=== PATIENT | male | born 1940 | race Caucasian/White ===

== ENCOUNTER 2017-06-25 16:50 | Emergency (ER) | payer MEDICARE, MEDICAID ==
--- NOTE | 2017-06-25 17:34 | EDM.PDOC ---
ED HPI GENERAL MEDICAL PROBLEM - General Chief Complaint: General Stated Complaint: LAB Time Seen by Provider: 06/25/17 17:32 Source of Information: Reports: Patient History Limitations: Reports: No Limitations - History of Present Illness INITIAL COMMENTS - FREE TEXT/NARRATIVE: History of present illness: [76-year-old male but in by brother who is concerned about his level of functioning. Patient is low functioning but can be somewhat independent. Now other indicates that he feels that he is not functioning to his normal capacity and desires to have his labs evaluated as his guardian.] Review of systems: As per history of present illness and below otherwise all systems reviewed and negative. Past medical history: As per history of present illness and as reviewed below otherwise noncontributory. Surgical history: As per history of present illness and as reviewed below otherwise noncontributory. Social history: No reported history of drug or alcohol abuse. Family history: As per history of present illness and as reviewed below otherwise noncontributory. Physical exam: HEENT: Atraumatic, normocephalic, pupils reactive, negative for conjunctival pallor or scleral icterus, mucous membranes moist, throat clear, neck supple, nontender, trachea midline. Lungs: Clear to auscultation, breath sounds equal bilaterally, chest nontender. Heart: S1S2, regular, negative for clicks, rubs, or JVD. Abdomen: Soft, nondistended, nontender. Negative for masses or hepatosplenomegaly. Negative for costovertebral tenderness. Pelvis: Stable nontender. Genitourinary: Deferred. Rectal: Deferred. Extremities: Atraumatic, negative for cords or calf pain. Neurovascular unremarkable. Neuro: Awake, alert, oriented. Cranial nerves II through XII unremarkable. Cerebellum unremarkable. Motor and sensory unremarkable throughout. Exam nonfocal. Brother indicates that he has just been worried about historical labs drawn at the [facility] and would like that repeated Diagnostics: [CBC, CMP, amylase, lipase, UA,] Therapeutics: [] Impression: [Worried well] Plan: [Follow-up with PCP] Definitive disposition and diagnosis as appropriate pending reevaluation and review of above. - Related Data Allergies Allergy/AdvReac Type Severity Reaction Status Date / Time No Known Allergies Allergy Verified 06/25/17 17:17 Home Meds: Home Meds Omeprazole Magnesium [Prilosec Otc] 20 mg PO BID 06/25/17 [History] Past Medical History HEENT History: Reports: None Cardiovascular History: Reports: None Respiratory History: Reports: None Gastrointestinal History: Reports: Diverticulosis Genitourinary History: Reports: None Musculoskeletal History: Reports: None Neurological History: Reports: Cerebral Palsy Psychiatric History: Reports: None Endocrine/Metabolic History: Reports: None Hematologic History: Reports: None Immunologic History: Reports: None Oncologic (Cancer) History: Reports: None Dermatologic History: Reports: None - Infectious Disease History Infectious Disease History: Reports: Chicken Pox, Measles, Mumps, Shingles - Past Surgical History Head Surgeries/Procedures: Reports: None HEENT Surgical History: Reports: None Cardiovascular Surgical History: Reports: None Respiratory Surgical History: Reports: None GI Surgical History: Reports: Colon, Hernia, Abdominal Male Surgical History: Reports: None Endocrine Surgical History: Reports: None Neurological Surgical History: Reports: None Musculoskeletal Surgical History: Reports: None Dermatological Surgical History: Reports: None Social & Family History - Family History Family Medical History: Noncontributory - Tobacco Use Smoking Status *Q: Current Every Day Smoker Years of Tobacco use: 56 Packs/Tins Daily: 0.2 - Caffeine Use Caffeine Use: Reports: Coffee - Recreational Drug Use Recreational Drug Use: No ED ROS GENERAL - Review of Systems Review Of Systems: See Below (History of present illness) ED EXAM, GENERAL - Physical Exam Exam: See Below (See history of present illness) Course - Vital Signs Last Recorded V/S: Last Vital Signs Temp 36.5 C 06/25/17 17:19 Pulse 115 H 06/25/17 17:19 Resp 18 06/25/17 17:19 BP 128/71 06/25/17 17:19 Pulse Ox 91 L 06/25/17 17:19 - Orders/Labs/Meds Orders: Active Orders 24 hr Category Date Time Status AMYLASE [CHEM] Stat Lab 06/25/17 17:47 Received COMPREHENSIVE METABOLIC PN,CMP [CHEM] Stat Lab 06/25/17 17:47 Received FREE T3 [REF] Stat Lab 06/25/17 17:47 Received LIPASE [CHEM] Stat Lab 06/25/17 17:47 Received MAGNESIUM [CHEM] Stat Lab 06/25/17 17:47 Received PSA SCREEN [CHEM] Stat Lab 06/25/17 17:47 Received TSH [CHEM] Stat Lab 06/25/17 17:47 Received UA W/MICROSCOPIC [URIN] Stat Lab 06/25/17 17:36 Uncollected Labs: Laboratory Tests 06/25/17 Range/Units 17:47 WBC 11.61 H (4.0-11.0) K/uL RBC 4.00 L (4.50-5.90) M/uL Hgb 10.9 L (13.0-17.0) g/dL Hct 33.3 L (38.0-50.0) % MCV 83.3 (80.0-98.0) fL MCH 27.3 (27.0-32.0) pg MCHC 32.7 (31.0-37.0) g/dL RDW Std Deviation 54.3 (28.0-62.0) fl RDW Coeff of Pierre 18 H (11.0-15.0) % Plt Count 503 H (150-400) K/uL MPV 8.80 (7.40-12.00) fL Neut % (Auto) 71.5 (48.0-80.0) % Lymph % (Auto) 15.8 L (16.0-40.0) % Walker % (Auto) 10.3 (0.0-15.0) % Eos % (Auto) 2.1 (0.0-7.0) % Baso % (Auto) 0.3 (0.0-1.5) % Neut # (Auto) 8.3 H (1.4-5.7) K/uL Lymph # (Auto) 1.8 (0.6-2.4) K/uL Walker # (Auto) 1.2 H (0.0-0.8) K/uL Eos # (Auto) 0.2 (0.0-0.7) K/uL Baso # (Auto) 0.0 (0.0-0.1) K/uL Nucleated RBC % 0.0 /100WBC Nucleated RBCs # 0 K/uL Departure - Departure Time of Disposition: 18:29 Disposition: Home, Self-Care 01 Condition: Good Clinical Impression: Physically well but worried - Discharge Information Referrals: PCP,None [Primary Care Provider] - Forms: ED Department Discharge Additional Instructions: The following information is given to patients seen in the emergency department who are being discharged to home. This information is to outline your options for follow-up care. We provide all patients seen in our emergency department with a follow-up referral. The need for follow-up, as well as the timing and circumstances, are variable depending upon the specifics of your emergency department visit. If you don't have a primary care physician on staff, we will provide you with a referral. We always advise you to contact your personal physician following an emergency department visit to inform them of the circumstance of the visit and for follow-up with them and/or the need for any referrals to a consulting specialist. The emergency department will also refer you to a specialist when appropriate. This referral assures that you have the opportunity for follow-up care with a specialist. All of these measure are taken in an effort to provide you with optimal care, which includes your follow-up. Under all circumstances we always encourage you to contact your private physician who remains a resource for coordinating your care. When calling for follow-up care, please make the office aware that this follow-up is from your recent emergency room visit. If for any reason you are refused follow-up, please contact the [facility] Emergency Department at and asked to speak to the emergency department charge nurse. Your lab results had no significant concerns at this time you can access them through medical records in approximately 5-7 business days Return to ED for any concerns as discussed - My Orders Last 24 Hours: My Active Orders 06/25/17 17:36 UA W/MICROSCOPIC [URIN] Stat 06/25/17 17:47 AMYLASE [CHEM] Stat COMPREHENSIVE METABOLIC PN,CMP [CHEM] Stat FREE T3 [REF] Stat LIPASE [CHEM] Stat MAGNESIUM [CHEM] Stat PSA SCREEN [CHEM] Stat TSH [CHEM] Stat - Assessment/Plan Last 24 Hours: My Active Orders 06/25/17 17:36 UA W/MICROSCOPIC [URIN] Stat 06/25/17 17:47 AMYLASE [CHEM] Stat COMPREHENSIVE METABOLIC PN,CMP [CHEM] Stat FREE T3 [REF] Stat LIPASE [CHEM] Stat MAGNESIUM [CHEM] Stat PSA SCREEN [CHEM] Stat TSH [CHEM] Stat
[2017-06-25 18:17] LABS: CHLORIDE,CL 104 mmol/L (98-110); SODIUM,NA 136 mmol/L (136-146)
== END 2017-06-25 18:41 | disposition home or self-care (01) ==
LOC: MW.ED 16:50
DX: Z71.1 Person with feared health complaint in whom no diagnosis is made (principal); F17.210 Nicotine dependence, cigarettes, uncomplicated
CPT/HCPCS: 80053; 82150; 83690; 83735; 84443; 84481; 85025; 99283; G0103; 36415; 99281

== ENCOUNTER 2018-01-01 04:03 | Inpatient (IN) | payer MEDICARE, MEDICAID ==
--- NOTE | 2018-01-01 04:27 | EDM.PDOC ---
ED HPI GENERAL MEDICAL PROBLEM - General Chief Complaint: Abdominal Pain Stated Complaint: POSSIBLY ANEMIC, LISTLESS, TIRED Time Seen by Provider: 01/01/18 04:08 - History of Present Illness INITIAL COMMENTS - FREE TEXT/NARRATIVE: HISTORY AND PHYSICAL: History of present illness: The patient is a 77-year-old male who has a history of cerebral palsy and is low functioning but lives with his brother and has limited use of his right upper extremity and no use of his lower extremities or left upper extremity and presents with brother with concerns about decreased energy and increased listlessness and a history of having some nausea and vomiting 4-5 days ago. The patient has not had diarrhea and is actually more on the constipated side and has not had fever chills chest pain or abdominal pain. He is making normal urine output and drinks a lot of water according to the brother. 4-5 days ago he had nausea and vomiting and has had some persistent heartburn-like symptoms for the last few days and normally takes Prilosec and has been adding some Pepto -Bismol. He has not been eating as much as usual but he's been tolerating by mouth. The patient has no complaints and according to the brother he has not had any recent falls loss of consciousness dizziness or lightheadedness. The brother says that in the past he has had anemia requiring blood transfusion and that was several years ago but the patient presented here to our emergency department in May 2017 with similar complaints to today, vague decrease activity and concerned about anemia. His lab values at that time are all within normal limits with a hemoglobin of 10.9. According to the brother he does not have a local provider in the clinic as he is "really healthy for his age and his pre-existing problems". The brother is very specific about what he wants and does not want. He tells that he normally has a cough with some phlegm which is not new or different and he does not feel like the cough is changed very much. The patient again denies to me that he is short of breath or having any chest pain. Please see below for more information Review of systems: As per history of present illness and below otherwise all systems reviewed and negative. Past medical history: As per history of present illness and as reviewed below otherwise noncontributory. Surgical history: As per history of present illness and as reviewed below otherwise noncontributory. Social history: No reported history of drug or alcohol abuse. Family history: As per history of present illness and as reviewed below otherwise noncontributory. Physical exam: General: Well-developed thin man who has contractures and profound stiffness in his lower extremities and left upper extremity. He answers simple questions and is nontoxic appearing with vital signs that I have noted. HEENT: Atraumatic, normocephalic, pupils reactive, negative for conjunctival pallor or scleral icterus, mucous membranes moist, throat clear, neck supple, nontender, trachea midline. Lungs: Clear to auscultation with some coarse breath sounds at the bases but no stridor or wheezing or work or breathing, breath sounds equal bilaterally, chest nontender. Heart: S1S2, regular, negative for clicks, rubs, or JVD. Abdomen: Soft, nondistended, nontender. Bowel sounds are hypoactive and there is some tympany in the upper abdomen on percussion but no rebound or guarding Negative for masses or hepatosplenomegaly. Pelvis: Stable nontender. Genitourinary: Deferred. Rectal: Buttocks skin is erythematous and mildly excoriated throughout but there is a lotion on it. There is no large evidence of breakdown. Brown stool is present at the anus and is Hemoccult positive Extremities: Atraumatic and there is increased tone and contractures in the lower extremities and less in the upper extremities but more in the left upper. This is not new or different for the brother. The legs are, negative for cords or calf pain. Neurovascular unremarkable. Neuro: Awake, alert, and at his mental baseline per the brother. The patient has no movement of his lower extremities and limited in the upper extremities which is at his baseline. Patient answers simple questions Exam nonfocal. Diagnostics: CBC CMP TSH magnesium UA, urine culture lactic acid H. pylori amylase lipase chest and KUB x-rays, blood cultures 2 EKG type and screen Therapeutics: IV fluids Protonix IV push and drip, Levaquin, blood transfusion The brother tells me that several years ago he had a low hemoglobin and had to receive IV units of blood and he does have a history of a ulcer with bleeding that has not been active recently. He takes antacids on a regular basis but brother says he has had more heartburn since the vomiting several days ago. When he vomited several days ago it was not black or bloody or coffee grounds. He has not had any black or bloody stools. His abdominal x-rays do show a copious amount of colonic stool as well as nonobstructive gas loops in the upper abdomen and a large hiatal hernia. 0550: Case was discussed with Dr. Aaron Montalvo who is the hospitalist and he accepts the patient for transfer and is aware of events here in the ED. Impression: Anemia with heme positive stools/upper GI bleed , history of ulcer disease and hiatal hernia, UTI with elevated lactate Definitive disposition and diagnosis as appropriate pending reevaluation and review of above. Abdomen Pain Score (Numeric/FACES): 3 - Related Data Allergies Allergy/AdvReac Type Severity Reaction Status Date / Time No Known Allergies Allergy Verified 01/01/18 04:13 Home Meds: Home Meds Omeprazole Magnesium [Prilosec Otc] 20 mg PO BID 06/25/17 [History] Past Medical History HEENT History: Reports: None Cardiovascular History: Reports: None Respiratory History: Reports: None Gastrointestinal History: Reports: Diverticulosis Genitourinary History: Reports: None Musculoskeletal History: Reports: None Neurological History: Reports: Cerebral Palsy Psychiatric History: Reports: None Endocrine/Metabolic History: Reports: None Hematologic History: Reports: None Immunologic History: Reports: None Oncologic (Cancer) History: Reports: None Dermatologic History: Reports: None - Infectious Disease History Infectious Disease History: Reports: None - Past Surgical History Head Surgeries/Procedures: Reports: None HEENT Surgical History: Reports: None Cardiovascular Surgical History: Reports: None Respiratory Surgical History: Reports: None GI Surgical History: Reports: Colon, Hernia, Abdominal Male Surgical History: Reports: None Endocrine Surgical History: Reports: None Neurological Surgical History: Reports: None Musculoskeletal Surgical History: Reports: None Dermatological Surgical History: Reports: None Social & Family History - Family History Family Medical History: Noncontributory - Tobacco Use Smoking Status *Q: Never Smoker - Caffeine Use Caffeine Use: Reports: Coffee - Recreational Drug Use Recreational Drug Use: No ED ROS GENERAL - Review of Systems Review Of Systems: ROS reveals no pertinent complaints other than HPI. ED EXAM, GENERAL - Physical Exam Exam: See Below (See dictation) Course - Vital Signs Last Recorded V/S: Last Vital Signs Temp 37.1 C 01/01/18 04:14 Pulse 105 H 01/01/18 05:28 Resp 17 01/01/18 05:28 BP 117/69 01/01/18 05:28 Pulse Ox 99 01/01/18 05:28 - Orders/Labs/Meds Orders: Active Orders 24 hr Category Date Time Status Patient Status [ADT] Stat ADT 01/01/18 05:52 Ordered EKG Documentation Completion [RC] STAT Care 01/01/18 05:07 Active Abdomen 1V Flat [CR] Stat Exams 01/01/18 04:27 Taken Chest 1V Frontal [CR] Stat Exams 01/01/18 04:25 Taken CULTURE BLOOD [BC] Stat Lab 01/01/18 05:10 Received CULTURE BLOOD [BC] Stat Lab 01/01/18 05:20 Received CULTURE URINE [RM] Stat Lab 01/01/18 04:33 Received RED BLOOD CELLS LP [BBK] Stat Lab 01/01/18 05:10 Received TYPE AND SCREEN [BBK] Stat Lab 01/01/18 05:10 Received UA W/MICROSCOPIC [URIN] Stat Lab 01/01/18 04:33 Ordered Levofloxacin/Dextrose 5%-Water [Levaquin in D5W 500 MG/ Med 01/01/18 05:07 Active 100 ML] 500 mg Premix Bag 1 bag IV ONETIME Pantoprazole [ProTONIX IV] 80 mg Med 01/01/18 05:15 Active Sodium Chloride 0.9% [Normal Saline] 100 ml IV .Continuous Sodium Chloride 0.9% [Normal Saline] 1,000 ml Med 01/01/18 05:00 Active IV ASDIRECTED Sodium Chloride 0.9% [Saline Flush] Med 01/01/18 04:56 Active 10 ml FLUSH ASDIRECTED PRN Sodium Chloride 0.9% [Saline Flush] Med 01/01/18 04:56 Active 2.5 ml FLUSH ASDIRECTED PRN Blood Culture x2 Reflex Set [OM.PC] Stat Oth 01/01/18 04:56 Ordered Saline Lock Insert [OM.PC] Stat Oth 01/01/18 04:56 Ordered Transfuse RBC [Transfuse Red Blood Cells] [COMM] Stat Oth 01/01/18 04:58 Ordered Medication Orders Sodium Chloride (Normal Saline) 1,000 mls @ 83 mls/hr IV ASDIRECTED JENNIFER Last Admin: 01/01/18 05:13 Dose: 83 mls/hr Pantoprazole Sodium 80 mg/ (Sodium Chloride) 100 mls @ 10 mls/hr IV .Continuous JENNIFER Last Admin: 01/01/18 05:35 Dose: 10 mls/hr Levofloxacin/Dextrose 500 mg/ (Premix) 100 mls @ 100 mls/hr IV ONETIME ONE Stop: 01/01/18 06:06 Last Admin: 01/01/18 05:24 Dose: 100 mls/hr Sodium Chloride (Saline Flush) 10 ml FLUSH ASDIRECTED PRN PRN Reason: Keep Vein Open Last Admin: 01/01/18 05:13 Dose: 10 ml Sodium Chloride (Saline Flush) 2.5 ml FLUSH ASDIRECTED PRN PRN Reason: Keep Vein Open Last Admin: 01/01/18 05:13 Dose: 2.5 ml Labs: Laboratory Tests 01/01/18 01/01/18 01/01/18 Range/Units 04:33 04:40 04:40 WBC 12.68 H (4.0-11.0) K/uL RBC 3.49 L (4.50-5.90) M/uL Hgb 5.9 L (13.0-17.0) g/dL Hct 22.1 L (38.0-50.0) % MCV 63.3 L (80.0-98.0) fL MCH 16.9 L (27.0-32.0) pg MCHC 26.7 L (31.0-37.0) g/dL RDW Std Deviation 47.8 (28.0-62.0) fl RDW Coeff of Pierre 21 H (11.0-15.0) % Plt Count 362 (150-400) K/uL MPV 8.20 (7.40-12.00) fL Neut % (Auto) 83.4 H (48.0-80.0) % Lymph % (Auto) 8.8 L (16.0-40.0) % [place] % (Auto) 7.4 (0.0-15.0) % Eos % (Auto) 0.2 (0.0-7.0) % Baso % (Auto) 0.2 (0.0-1.5) % Neut # (Auto) 10.6 H (1.4-5.7) K/uL Lymph # (Auto) 1.1 (0.6-2.4) K/uL [place] # (Auto) 0.9 H (0.0-0.8) K/uL Eos # (Auto) 0.0 (0.0-0.7) K/uL Baso # (Auto) 0.0 (0.0-0.1) K/uL Nucleated RBC % 0.3 /100WBC Nucleated RBCs # 0 K/uL Lactate (0.20-2.00) mmol/L Sodium 136 (136-148) mmol/L Potassium 5.0 (3.5-5.1) mmol/L Chloride 102 (98-107) mmol/L Carbon Dioxide 22.0 (21.0-32.0) mmol/L BUN 24 H (7.0-18.0) mg/dL Creatinine 1.2 (0.8-1.3) mg/dL Est Cr Clr Drug Dosing TNP Estimated GFR (MDRD) 58.6 ml/min Glucose 124 H (74-106) mg/dL Calcium 10.1 (8.5-10.1) mg/dL Magnesium 1.8 (1.5-2.0) mg/dL Total Bilirubin 0.2 (0.2-1.0) mg/dL AST 16 (15-37) IU/L ALT 21 (14-63) IU/L Alkaline Phosphatase 62 (46-116) U/L Total Protein 8.3 H (6.4-8.2) g/dL Albumin 3.9 (3.4-5.0) g/dL Globulin 4.4 H (2.0-3.5) g/dL Albumin/Globulin Ratio 0.9 L (1.3-2.8) Amylase 61 (25-115) U/L Lipase 131 (73-393) U/L TSH 3rd Generation 4.30 H (0.36-3.74) uIU/mL Urine Color YELLOW Urine Appearance CLOUDY Urine pH 5.5 (5.0-8.0) Ur Specific [place] 1.025 (1.001-1.035) Urine Protein TRACE (NEGATIVE) mg/dL Urine Glucose (UA) NEGATIVE (NEGATIVE) mg/dL Urine Ketones NEGATIVE (NEGATIVE) mg/dL Urine Occult Blood TRACE-INTACT (NEGATIVE) Urine Nitrite POSITIVE H (NEGATIVE) Urine Bilirubin NEGATIVE (NEGATIVE) Urine Urobilinogen 0.2 (<2.0) EU/dL Ur Leukocyte Esterase LARGE (NEGATIVE) Urine RBC 0-2 (0-2/HPF) Urine WBC 19-26 (0-5/HPF) Ur Epithelial Cells FEW (NONE-FEW) Urine Bacteria 2+ H (NEGATIVE) Urine Mucus LIGHT (NONE-MOD) H. pylori IgG Antibody (NEG) 01/01/18 01/01/18 Range/Units 04:40 04:40 WBC (4.0-11.0) K/uL RBC (4.50-5.90) M/uL Hgb (13.0-17.0) g/dL Hct (38.0-50.0) % MCV (80.0-98.0) fL MCH (27.0-32.0) pg MCHC (31.0-37.0) g/dL RDW Std Deviation (28.0-62.0) fl RDW Coeff of Pierre (11.0-15.0) % Plt Count (150-400) K/uL MPV (7.40-12.00) fL Neut % (Auto) (48.0-80.0) % Lymph % (Auto) (16.0-40.0) % [place] % (Auto) (0.0-15.0) % Eos % (Auto) (0.0-7.0) % Baso % (Auto) (0.0-1.5) % Neut # (Auto) (1.4-5.7) K/uL Lymph # (Auto) (0.6-2.4) K/uL [place] # (Auto) (0.0-0.8) K/uL Eos # (Auto) (0.0-0.7) K/uL Baso # (Auto) (0.0-0.1) K/uL Nucleated RBC % /100WBC Nucleated RBCs # K/uL Lactate 3.7 H (0.20-2.00) mmol/L Sodium (136-148) mmol/L Potassium (3.5-5.1) mmol/L Chloride (98-107) mmol/L Carbon Dioxide (21.0-32.0) mmol/L BUN (7.0-18.0) mg/dL Creatinine (0.8-1.3) mg/dL Est Cr Clr Drug Dosing Estimated GFR (MDRD) ml/min Glucose (74-106) mg/dL Calcium (8.5-10.1) mg/dL Magnesium (1.5-2.0) mg/dL Total Bilirubin (0.2-1.0) mg/dL AST (15-37) IU/L ALT (14-63) IU/L Alkaline Phosphatase (46-116) U/L Total Protein (6.4-8.2) g/dL Albumin (3.4-5.0) g/dL Globulin (2.0-3.5) g/dL Albumin/Globulin Ratio (1.3-2.8) Amylase (25-115) U/L Lipase (73-393) U/L TSH 3rd Generation (0.36-3.74) uIU/mL Urine Color Urine Appearance Urine pH (5.0-8.0) Ur Specific [place] (1.001-1.035) Urine Protein (NEGATIVE) mg/dL Urine Glucose (UA) (NEGATIVE) mg/dL Urine Ketones (NEGATIVE) mg/dL Urine Occult Blood (NEGATIVE) Urine Nitrite (NEGATIVE) Urine Bilirubin (NEGATIVE) Urine Urobilinogen (<2.0) EU/dL Ur Leukocyte Esterase (NEGATIVE) Urine RBC (0-2/HPF) Urine WBC (0-5/HPF) Ur Epithelial Cells (NONE-FEW) Urine Bacteria (NEGATIVE) Urine Mucus (NONE-MOD) H. pylori IgG Antibody NEGATIVE (NEG) Meds: Medications Generic Name Dose Route Start Last Admin Trade Name Freq PRN Reason Stop Dose Admin Sodium Chloride 1,000 mls @ 83 mls/hr 01/01/18 05:00 01/01/18 05:13 Normal Saline IV 83 mls/hr ASDIRECTED JENNIFER Administration Pantoprazole Sodium 80 mg/ 100 mls @ 10 mls/hr 01/01/18 05:15 01/01/18 05:35 Sodium Chloride IV 10 mls/hr .Continuous JENNIFER Administration Levofloxacin/Dextrose 500 mg/ 100 mls @ 100 mls/hr 01/01/18 05:07 01/01/18 05 :24 Premix IV 01/01/18 06:06 100 mls/hr ONETIME ONE Administration Sodium Chloride 10 ml 01/01/18 04:56 05/09/18 05:13 Saline Flush FLUSH 10 ml ASDIRECTED PRN Administration Keep Vein Open Sodium Chloride 2.5 ml 01/01/18 04:56 01/01/18 05:13 Saline Flush FLUSH 2.5 ml ASDIRECTED PRN Administration Keep Vein Open Discontinued Medications Generic Name Dose Route Start Last Admin Trade Name Freq PRN Reason Stop Dose Admin Pantoprazole Sodium 80 mg 01/01/18 04:58 01/01/18 05:17 Protonix Iv IVPUSH 01/01/18 04:59 80 mg .BOLUS ONE Administration Departure - Departure Time of Disposition: 05:54 Disposition: Admitted As Inpatient 65 Condition: Good Clinical Impression: Upper GI bleeding Anemia Qualifiers: Anemia type: other cause Other causes of anemia: other cause, not classified Qualified Code(s): D64.89 - Other specified anemias UTI (urinary tract infection) Qualifiers: Urinary tract infection type: site unspecified Hematuria presence: without hematuria Qualified Code(s): N39.0 - Urinary tract infection, site not specified - Discharge Information Referrals: PCP,None [Primary Care Provider] - Forms: ED Department Discharge - My Orders Last 24 Hours: My Active Orders 01/01/18 04:25 Chest 1V Frontal [CR] Stat 01/01/18 04:27 Abdomen 1V Flat [CR] Stat 01/01/18 04:33 CULTURE URINE [RM] Stat UA W/MICROSCOPIC [URIN] Stat 01/01/18 04:56 Sodium Chloride 0.9% [Saline Flush] 10 ml FLUSH ASDIRECTED PRN Sodium Chloride 0.9% [Saline Flush] 2.5 ml FLUSH ASDIRECTED PRN Blood Culture x2 Reflex Set [OM.PC] Stat Saline Lock Insert [OM.PC] Stat 01/01/18 04:58 Transfuse RBC [Transfuse Red Blood Cells] [COMM] Stat 01/01/18 05:00 Sodium Chloride 0.9% [Normal Saline] 1,000 ml IV ASDIRECTED 01/01/18 05:07 EKG Documentation Completion [RC] STAT Levofloxacin/Dextrose 5%-Water [Levaquin in D5W 500 MG/100 ML] 500 mg Premix Bag 1 bag IV ONETIME 01/01/18 05:10 CULTURE BLOOD [BC] Stat RED BLOOD CELLS LP [BBK] Stat TYPE AND SCREEN [BBK] Stat 01/01/18 05:15 Pantoprazole [ProTONIX IV] 80 mg Sodium Chloride 0.9% [Normal Saline] 100 ml IV .Continuous 01/01/18 05:20 CULTURE BLOOD [BC] Stat 01/01/18 05:52 Patient Status [ADT] Stat - Assessment/Plan Last 24 Hours: My Active Orders 01/01/18 04:25 Chest 1V Frontal [CR] Stat 01/01/18 04:27 Abdomen 1V Flat [CR] Stat 01/01/18 04:33 CULTURE URINE [RM] Stat UA W/MICROSCOPIC [URIN] Stat 01/01/18 04:56 Sodium Chloride 0.9% [Saline Flush] 10 ml FLUSH ASDIRECTED PRN Sodium Chloride 0.9% [Saline Flush] 2.5 ml FLUSH ASDIRECTED PRN Blood Culture x2 Reflex Set [OM.PC] Stat Saline Lock Insert [OM.PC] Stat 01/01/18 04:58 Transfuse RBC [Transfuse Red Blood Cells] [COMM] Stat 01/01/18 05:00 Sodium Chloride 0.9% [Normal Saline] 1,000 ml IV ASDIRECTED 01/01/18 05:07 EKG Documentation Completion [RC] STAT Levofloxacin/Dextrose 5%-Water [Levaquin in D5W 500 MG/100 ML] 500 mg Premix Bag 1 bag IV ONETIME 01/01/18 05:10 CULTURE BLOOD [BC] Stat RED BLOOD CELLS LP [BBK] Stat TYPE AND SCREEN [BBK] Stat 01/01/18 05:15 Pantoprazole [ProTONIX IV] 80 mg Sodium Chloride 0.9% [Normal Saline] 100 ml IV .Continuous 01/01/18 05:20 CULTURE BLOOD [BC] Stat 01/01/18 05:52 Patient Status [ADT] Stat
[2018-01-01] MEDS ORDERED: Sodium Chloride 0.9% 2.5 ML Syringe FLUSH PRN (04:56)
[2018-01-01] MEDS ORDERED: Sodium Chloride 0.9% 10 ML Syringe FLUSH PRN (04:56)
[2018-01-01] MEDS ORDERED: Pantoprazole 40 MG Vial IVPUSH ONE (04:58)
[2018-01-01] MEDS ORDERED: Sodium Chloride 0.9% 1,000 ML IV SCH (05:00)
[2018-01-01] MEDS ORDERED: Levofloxacin/Dextrose 5%-Water 500 MG in Premix Bag 1 BAG IV ONE (05:07)
[2018-01-01] MEDS ORDERED: Pantoprazole 80 MG in Sodium Chloride 0.9% 100 ML IV SCH ×2 (05:15→15:35)
[2018-01-01 05:23] LABS: CHLORIDE,CL 102 mmol/L (98-107); SODIUM,NA 136 mmol/L (136-148)
[2018-01-01] MEDS ORDERED: Ondansetron 4 MG/2 ML SDV IVPUSH PRN (06:50)
[2018-01-01] MEDS ORDERED: cefTRIAXone 1 GM in Premix Bag 1 BAG IV SCH ×2 (07:00→07:30)
[2018-01-01] MEDS: cefTRIAXone 1 GM in Sodium Chloride 0.9% 50 ML IV SCH (07:39)
--- NOTE | 2018-01-01 08:57 | PCM.HP ---
H&P History of Present Illness - General Date of Service: 01/01/18 Admit Problem/Dx: Admission Diagnosis/Problem Admission Diagnosis/Problem Anemia Source of Information: Patient History Limitations: Reports: No Limitations - History of Present Illness Initial Comments - Free Text/Narative: This 77 year old male with pmh of cerebal palsy and gastric ulcers presented to the ED with concerns of increased malaise and decreased energy. He reports for the last week he has had some increased heartburn with nausea and vomiting. He reports once he vomits the heartburn stops. He denies emesis that is black, bloody or coffee ground in appearance. He reports he doesn't have regular BMs, but had one on Saturday and it appeared normal, not black or with raquel blood. He taking a stool softener for bowel regimen. He denies diarrhea. He denies fevers, worsening cough, has a cough at baseline, sinus congestion, chest pain or lower abdominal pain. He reports the heartburn creates a chest pain sensation , but its burning in nature. He is wheelchair bound and lives with a brother who helps care for him. He reports he doesn't think he has had a EGD or colonscopy recently, "maybe when I was a child". He reports he takes Prilosec for heartburn daily, but it hasn't been helping recently. He reports smoking 1- 4 cigarettes daily, rare alcohol use and no recreational drug use. Denies heavy use of NSAIDs In the ED leukocytosis noted, 12, 680, hgb 5.9, hct 22.1 BUN 24 Cr 1.2, Lactate elevated 3.7. UA revealed +nitrites, large leukocyte esterase, +2 bacteria, WBC 19-26. H pylori negative. CXR negative. Abdominal X ray revealed non- obstructive bowel gas wit moderate to large amount of stool present. TSh 4.30. he was given Protonix 80 mg bolus and started on protonix gtt. 2 units PRBCs ordered to be given as well. Levaquin given for UTI. EKG revealed ST 110-120s. BP 110/60-70s. Abdomen Pain Score (Numeric/FACES): 3 - Related Data Allergies/Adverse Reactions: Allergies Allergy/AdvReac Type Severity Reaction Status Date / Time No Known Allergies Allergy Verified 01/01/18 04:13 Home Medications: Home Meds Omeprazole Magnesium [Prilosec Otc] 20 mg PO BID 06/25/17 [History] Past Medical History HEENT History: Reports: None Cardiovascular History: Reports: None. Denies: CAD, High Cholesterol, Hypertension, OR Respiratory History: Reports: None. Denies: COPD, PE Gastrointestinal History: Reports: Chronic Constipation, Diverticulosis, GERD, GI Bleed Genitourinary History: Reports: None. Denies: Chronic Renal Insuffiency Musculoskeletal History: Reports: Other (See Below) (no nambulatory, wheelchair bound due to CP) Neurological History: Reports: Cerebral Palsy Psychiatric History: Reports: None Endocrine/Metabolic History: Reports: None. Denies: Diabetes, Type II Hematologic History: Reports: None Immunologic History: Reports: None Oncologic (Cancer) History: Reports: None Dermatologic History: Reports: None - Infectious Disease History Infectious Disease History: Reports: None - Past Surgical History Head Surgeries/Procedures: Reports: None HEENT Surgical History: Reports: None Cardiovascular Surgical History: Reports: None Respiratory Surgical History: Reports: None GI Surgical History: Reports: Colon, Hernia, Abdominal Male Surgical History: Reports: None Endocrine Surgical History: Reports: None Neurological Surgical History: Reports: None Musculoskeletal Surgical History: Reports: None Dermatological Surgical History: Reports: None Social & Family History - Family History Family Medical History: Noncontributory - Tobacco Use Smoking Status *Q: Current Every Day Smoker Years of Tobacco use: 55 Packs/Tins Daily: 0.1 Second Hand Smoke Exposure: No - Caffeine Use Caffeine Use: Reports: Coffee - Recreational Drug Use Recreational Drug Use: No - Living Situation & Occupation Living situation: Reports: with Family (with brother) Occupation: Disabled H&P Review of Systems - Review of Systems: Review Of Systems: See Below General: Reports: Malaise, Weakness, Fatigue. Denies: Fever, Chills HEENT: Reports: No Symptoms. Denies: Headaches, Hearing Changes, Sinus Congestion, Sore Throat, Visual Changes Pulmonary: Reports: Cough (has at baseline, no changes). Denies: Shortness of Breath, Sputum Cardiovascular: Reports: No Symptoms. Denies: Chest Pain, Orthopnea, Edema Gastrointestinal: Reports: Constipation, Decreased Appetite, Nausea, Vomiting, Other (worsening heartburn). Denies: Abdominal Pain, Black Stool, Bloody Stool , Diarrhea, Hematemesis, Hematochezia Genitourinary: Reports: No Symptoms. Denies: Dysuria, Frequency, Burning Musculoskeletal: Reports: No Symptoms Skin: Reports: No Symptoms Psychiatric: Reports: No Symptoms Neurological: Reports: No Symptoms Hematologic/Lymphatic: Reports: Anemia Immunologic: Reports: No Symptoms Exam - Exam Exam: See Below - Vital Signs Vital Signs: Last Vital Signs Temp 99.7 F 01/01/18 06:30 Pulse 110 H 01/01/18 06:30 Resp 18 01/01/18 06:30 BP 117/68 01/01/18 06:30 Pulse Ox 98 01/01/18 06:30 Weight: 48.988 kg - Exam Quality Assessment: DVT Prophylaxis General: Alert, Oriented, Cooperative, Other (pallor noted) HEENT: Conjunctiva Clear, Mucosa Moist & Floweree, Posterior Pharynx Clear, Pupils Reactive Neck: Supple, Trachea Midline. No: Lymphadenopathy Lungs: Clear to Auscultation, Normal Respiratory Effort Cardiovascular: Regular Rhythm, Tachycardia GI/Abdominal Exam: Normal Bowel Sounds, Soft, Non-Tender, No Organomegaly, No Distention, No Abnormal Bruit, No Mass, Pelvis Stable Rectal (Males) Exam: Normal Exam, Heme + Stool, Other (stool noted in rectal vault. hemeoccult collected to be processed in lab. Stool noted to be brown. No obvious,raquel blood ). No: Black Stool, Bloody Stool, Hemorrhoids, Mass, Tenderness Back Exam: Normal Inspection, Full Range of Motion, NT Extremities: Normal Inspection, Normal Range of Motion, Non-Tender, No Pedal Edema, Normal Capillary Refill, Other (contractures noted to lower extremities) Skin: Dry, Intact, Cool (pale). No: Decubitis Neuro Extensive - Mental Status: Alert, Oriented x3, Normal Mood/Affect, Normal Cognition Neuro Extensive - Motor, Sensory, Reflexes: CN II-XII Intact Psychiatric: Alert, Normal Affect, Normal Mood - Patient Data Lab Results Last 24 hrs: Laboratory Results - last 24 hr 01/01/18 01/01/18 01/01/18 Range/Units 04:33 04:40 04:40 WBC 12.68 H (4.0-11.0) K/uL RBC 3.49 L (4.50-5.90) M/uL Hgb 5.9 L (13.0-17.0) g/dL Hct 22.1 L (38.0-50.0) % MCV 63.3 L (80.0-98.0) fL MCH 16.9 L (27.0-32.0) pg MCHC 26.7 L (31.0-37.0) g/dL RDW Std Deviation 47.8 (28.0-62.0) fl RDW Coeff of Pierre 21 H (11.0-15.0) % Plt Count 362 (150-400) K/uL MPV 8.20 (7.40-12.00) fL Neut % (Auto) 83.4 H (48.0-80.0) % Lymph % (Auto) 8.8 L (16.0-40.0) % [place] % (Auto) 7.4 (0.0-15.0) % Eos % (Auto) 0.2 (0.0-7.0) % Baso % (Auto) 0.2 (0.0-1.5) % Neut # (Auto) 10.6 H (1.4-5.7) K/uL Lymph # (Auto) 1.1 (0.6-2.4) K/uL [place] # (Auto) 0.9 H (0.0-0.8) K/uL Eos # (Auto) 0.0 (0.0-0.7) K/uL Baso # (Auto) 0.0 (0.0-0.1) K/uL Nucleated RBC % 0.3 /100WBC Nucleated RBCs # 0 K/uL Lactate (0.20-2.00) mmol/L Sodium 136 (136-148) mmol/L Potassium 5.0 (3.5-5.1) mmol/L Chloride 102 (98-107) mmol/L Carbon Dioxide 22.0 (21.0-32.0) mmol/L BUN 24 H (7.0-18.0) mg/dL Creatinine 1.2 (0.8-1.3) mg/dL Est Cr Clr Drug Dosing TNP Estimated GFR (MDRD) 58.6 ml/min Glucose 124 H (74-106) mg/dL Calcium 10.1 (8.5-10.1) mg/dL Magnesium 1.8 (1.5-2.0) mg/dL Total Bilirubin 0.2 (0.2-1.0) mg/dL AST 16 (15-37) IU/L ALT 21 (14-63) IU/L Alkaline Phosphatase 62 (46-116) U/L Total Protein 8.3 H (6.4-8.2) g/dL Albumin 3.9 (3.4-5.0) g/dL Globulin 4.4 H (2.0-3.5) g/dL Albumin/Globulin Ratio 0.9 L (1.3-2.8) Amylase 61 (25-115) U/L Lipase 131 (73-393) U/L TSH 3rd Generation 4.30 H (0.36-3.74) uIU/mL Urine Color YELLOW Urine Appearance CLOUDY Urine pH 5.5 (5.0-8.0) Ur Specific [place] 1.025 (1.001-1.035) Urine Protein TRACE (NEGATIVE) mg/dL Urine Glucose (UA) NEGATIVE (NEGATIVE) mg/dL Urine Ketones NEGATIVE (NEGATIVE) mg/dL Urine Occult Blood TRACE-INTACT (NEGATIVE) Urine Nitrite POSITIVE H (NEGATIVE) Urine Bilirubin NEGATIVE (NEGATIVE) Urine Urobilinogen 0.2 (<2.0) EU/dL Ur Leukocyte Esterase LARGE (NEGATIVE) Urine RBC 0-2 (0-2/HPF) Urine WBC 19-26 (0-5/HPF) Ur Epithelial Cells FEW (NONE-FEW) Urine Bacteria 2+ H (NEGATIVE) Urine Mucus LIGHT (NONE-MOD) H. pylori IgG Antibody (NEG) Blood Type Antibody Screen Crossmatch 01/01/18 01/01/18 01/01/18 Range/Units 04:40 04:40 05:10 WBC (4.0-11.0) K/uL RBC (4.50-5.90) M/uL Hgb (13.0-17.0) g/dL Hct (38.0-50.0) % MCV (80.0-98.0) fL MCH (27.0-32.0) pg MCHC (31.0-37.0) g/dL RDW Std Deviation (28.0-62.0) fl RDW Coeff of Pierre (11.0-15.0) % Plt Count (150-400) K/uL MPV (7.40-12.00) fL Neut % (Auto) (48.0-80.0) % Lymph % (Auto) (16.0-40.0) % [place] % (Auto) (0.0-15.0) % Eos % (Auto) (0.0-7.0) % Baso % (Auto) (0.0-1.5) % Neut # (Auto) (1.4-5.7) K/uL Lymph # (Auto) (0.6-2.4) K/uL [place] # (Auto) (0.0-0.8) K/uL Eos # (Auto) (0.0-0.7) K/uL Baso # (Auto) (0.0-0.1) K/uL Nucleated RBC % /100WBC Nucleated RBCs # K/uL Lactate 3.7 H (0.20-2.00) mmol/L Sodium (136-148) mmol/L Potassium (3.5-5.1) mmol/L Chloride (98-107) mmol/L Carbon Dioxide (21.0-32.0) mmol/L BUN (7.0-18.0) mg/dL Creatinine (0.8-1.3) mg/dL Est Cr Clr Drug Dosing Estimated GFR (MDRD) ml/min Glucose (74-106) mg/dL Calcium (8.5-10.1) mg/dL Magnesium (1.5-2.0) mg/dL Total Bilirubin (0.2-1.0) mg/dL AST (15-37) IU/L ALT (14-63) IU/L Alkaline Phosphatase (46-116) U/L Total Protein (6.4-8.2) g/dL Albumin (3.4-5.0) g/dL Globulin (2.0-3.5) g/dL Albumin/Globulin Ratio (1.3-2.8) Amylase (25-115) U/L Lipase (73-393) U/L TSH 3rd Generation (0.36-3.74) uIU/mL Urine Color Urine Appearance Urine pH (5.0-8.0) Ur Specific [place] (1.001-1.035) Urine Protein (NEGATIVE) mg/dL Urine Glucose (UA) (NEGATIVE) mg/dL Urine Ketones (NEGATIVE) mg/dL Urine Occult Blood (NEGATIVE) Urine Nitrite (NEGATIVE) Urine Bilirubin (NEGATIVE) Urine Urobilinogen (<2.0) EU/dL Ur Leukocyte Esterase (NEGATIVE) Urine RBC (0-2/HPF) Urine WBC (0-5/HPF) Ur Epithelial Cells (NONE-FEW) Urine Bacteria (NEGATIVE) Urine Mucus (NONE-MOD) H. pylori IgG Antibody NEGATIVE (NEG) Blood Type O NEGATIVE Antibody Screen NEGATIVE Crossmatch See Detail Result Diagrams: 01/01/18 04:40 01/01/18 04:40 EKG INTERPRETATION EKG Date: 01/01/18 Rhythm: Other (ST) Rate (Beats/Min): 110 P-Wave: Present QRS: Normal ST-T: Normal QT: Normal *Q Meaningful Use (ADM) - VTE *Q VTE Pharmacological Contraindications *Q: Risk of Bleeding - Problem List (1) Upper GI bleeding SNOMED Code(s): 16999187 ICD Code: K92.2 - GASTROINTESTINAL HEMORRHAGE, UNSPECIFIED Status: Acute Current Visit: Yes (2) Anemia SNOMED Code(s): 672553262 ICD Code: D64.9 - ANEMIA, UNSPECIFIED Status: Acute Current Visit: Yes Qualifiers: Anemia type: unspecified type Qualified Code(s): D64.9 - Anemia, unspecified (3) Elevated lactic acid level SNOMED Code(s): 3088169 ICD Code: R79.89 - OTHER SPECIFIED ABNORMAL FINDINGS OF BLOOD CHEMISTRY Status: Acute Current Visit: Yes (4) UTI (urinary tract infection) SNOMED Code(s): 87154261 ICD Code: N39.0 - URINARY TRACT INFECTION, SITE NOT SPECIFIED Status: Acute Current Visit: Yes Qualifiers: Urinary tract infection type: site unspecified Hematuria presence: without hematuria Qualified Code(s): N39.0 - Urinary tract infection, site not specified (5) Cerebral palsy SNOMED Code(s): 056102015 ICD Code: G80.9 - CEREBRAL PALSY, UNSPECIFIED Status: Chronic Current Visit: Yes (6) Constipation SNOMED Code(s): 55496547 ICD Code: K59.00 - CONSTIPATION, UNSPECIFIED Status: Acute Current Visit : Yes (7) Hx of gastroesophageal reflux (GERD) SNOMED Code(s): 06211042485457 ICD Code: Z87.19 - PERSONAL HISTORY OF OTHER DISEASES OF THE DIGESTIVE SYSTEM Status: Chronic Current Visit: Yes Problem List Initiated/Reviewed/Updated: Yes Orders Last 24hrs: Active Orders 24 hr Category Date Time Status Patient Status [ADT] Stat ADT 01/01/18 05:52 Active Bedrest [RC] ASDIRECTED Care 01/01/18 06:53 Active Communication Order [RC] ROUTINE Care 01/01/18 06:56 Active EKG Documentation Completion [RC] STAT Care 01/01/18 05:07 Active Intake and Output [RC] ASDIRECTED Care 01/01/18 06:52 Active Telemetry Monitoring [Cardiac Monitoring] [RC] . Care 01/01/18 06:45 Active DIRECTED Vital Signs [RC] Q4H Care 01/01/18 08:00 Active Regular Diet [DIET] Diet 01/01/18 Breakfast Active Abdomen 1V Flat [CR] Stat Exams 01/01/18 04:27 Taken Chest 1V Frontal [CR] Stat Exams 01/01/18 04:25 Taken CULTURE BLOOD [BC] Stat Lab 01/01/18 05:10 Received CULTURE BLOOD [BC] Stat Lab 01/01/18 05:20 Received CULTURE URINE [RM] Stat Lab 01/01/18 04:33 Received LACTIC ACID,WHOLE BLOOD [BG] Routine Lab 01/01/18 08:50 Ordered RED BLOOD CELLS LP [BBK] Stat Lab 01/01/18 05:10 Results TYPE AND SCREEN [BBK] Stat Lab 01/01/18 05:10 Results UA W/MICROSCOPIC [URIN] Stat Lab 01/01/18 04:33 Ordered Ondansetron [Zofran] Med 01/01/18 06:50 Active 4 mg IVPUSH Q4H PRN Pantoprazole [ProTONIX IV] 80 mg Med 01/01/18 05:15 Active Sodium Chloride 0.9% [Normal Saline] 100 ml IV .Continuous Pantoprazole [ProTONIX IV] 80 mg Med 01/01/18 15:35 Active Sodium Chloride 0.9% [Normal Saline] 100 ml IV Q10H Sodium Chloride 0.9% [Normal Saline] 1,000 ml Med 01/01/18 05:00 Active IV ASDIRECTED Sodium Chloride 0.9% [Saline Flush] Med 01/01/18 04:56 Active 10 ml FLUSH ASDIRECTED PRN Sodium Chloride 0.9% [Saline Flush] Med 01/01/18 04:56 Active 2.5 ml FLUSH ASDIRECTED PRN cefTRIAXone [Rocephin] 1 gm Med 01/01/18 07:15 Active Sodium Chloride 0.9% [Normal Saline] 50 ml IV Q24H Blood Culture x2 Reflex Set [OM.PC] Stat Ot 01/01/18 04:56 Ordered Precautions [COMM] Routine Ot 01/01/18 06:53 Ordered Saline Lock Insert [OM.PC] Stat Ot 01/01/18 04:56 Ordered Transfuse RBC [Transfuse Red Blood Cells] [COMM] Stat Ot 01/01/18 04:58 Ordered Medication Orders Sodium Chloride (Normal Saline) 1,000 mls @ 83 mls/hr IV ASDIRECTED JENNIFER Last Admin: 01/01/18 05:13 Dose: 83 mls/hr Pantoprazole Sodium 80 mg/ (Sodium Chloride) 100 mls @ 10 mls/hr IV .Continuous JENNIFER Stop: 01/01/18 15:34 Last Admin: 01/01/18 05:35 Dose: 10 mls/hr Ceftriaxone Sodium 1 gm/ (Sodium Chloride) 50 mls @ 100 mls/hr IV Q24H JENNIFER Last Admin: 01/01/18 07:39 Dose: 100 mls/hr Pantoprazole Sodium 80 mg/ (Sodium Chloride) 100 mls @ 10 mls/hr IV Q10H JENNIFER Ondansetron HCl (Zofran) 4 mg IVPUSH Q4H PRN PRN Reason: Nausea/Vomiting Sodium Chloride (Saline Flush) 10 ml FLUSH ASDIRECTED PRN PRN Reason: Keep Vein Open Last Admin: 01/01/18 05:13 Dose: 10 ml Sodium Chloride (Saline Flush) 2.5 ml FLUSH ASDIRECTED PRN PRN Reason: Keep Vein Open Last Admin: 01/01/18 05:13 Dose: 2.5 ml Assessment/Plan Comment:: Thi 77 hanh old male admitted with suspected upper GI bleed, anemia requiring transfusion, and UTI 1. Upper GIB: Hgb 5.9. Will transfuse 2 units now and monitor HH after transfusion. Hgb goal should be near 10. Continue Protonix IV Patient tolerated regular diet this morning, will make NPO now and speak with general surgeon. Patient denies wanting EGD now, but would think about it if he "needs it later." Brother not in room, will discuss this with him when he returns. 2. UTI: BC and UC pending. Rocephin started. Will continue this. Trend lactic acid, may be elevated due to hypoperfusion from anemia and tachycardia, along with UTI. 3. Constipation: Will give Dulcolax rectally and Enema PRN. 4. Cerebral palsy: Stable. Wheelchair bound, non-ambulatory VTE prophylaxis: SCDs due to anemia and suspected upper GI bleed. Dispo: 2-3 days pending improvement.
[2018-01-01] MEDS ORDERED: Bisacodyl 10 MG Supp RECTAL SCH (12:00)
[2018-01-01] MEDS ORDERED: Bisacodyl 10 MG Supp RECTAL PRN (13:39)
[2018-01-01] MEDS ORDERED: Iopamidol 755 MG/ML 500 ML Multipack Bottle IVPUSH STA (14:12)
--- NOTE | 2018-01-01 14:30 | CT ---
CT of the abdomen and pelvis with and without contrast. HISTORY: GI bleeding TECHNIQUE: Axial CT images were obtained of the abdomen and pelvis before and following administratio n of 60 mL of Isovue-370 without complication. Coronal and sagittal reconstructions obtained. FINDINGS: There is a large hiatal hernia. Scarring and atelectasis noted within the lung bases. Tiny cyst withi n the right hepatic lobe. Spleen, adrenal glands, pancreas, and gallbladder are grossly unremarkable. No bulky retroperitoneal lymphadenopathy or abdominal ascites. The kidneys enhance and function symmetrically without evidence of obstructive uropathy. There is a h eterogeneously enhancing 2.2 cm nodule within the lower pole of the left kidney. There is also a tiny 9 mm nodule within the posterior left upper pole. Pelvis: There is a large amount of stool impacted within the rectum. Multiple undissolved pills noted throughout the colon. Appendix is not identified. The urinary bladder is mildly distended. No pelvic lymphadenopathy. 5 cm subcutaneous cyst overlying the left hip. No bulky pelvic lymphadenopathy or f ree pelvic fluid. Mild generalized anasarca. Degenerative changes noted within the right hip. No suspicious osseous abnormalities. IMPRESSION: 1. Large amount of rectal stool impaction noted. 2. Suspicious 2.2 cm nodule within the lower pole of the left kidney and similarly a small 0.9 cm nod ule within the upper pole. 3. Multiple undissolved pills throughout the colon. 4. Mild generalized anasarca. 5. 5 cm subcutaneous cyst overlying the left hip. 6. Mild urinary bladder distention. 7. Large hiatal hernia.
[2018-01-01] MEDS ORDERED: Pantoprazole 40 MG Vial IV SCH (15:30)
--- NOTE | 2018-01-01 16:16 | CR ---
EXAM DATE: 01/01/18 PATIENT'S AGE: 77 Patient: VALENTÍN BREWER Facility: [place], [place] Site . Site : 1940 Study: XRay Abdomen [id number]/9/2018 4:51:29 AM Ordering Physician: Joelle Peraza Final Report: INDICATION: General abd pain TECHNIQUE: Abdomen 1 view COMPARISON: None FINDINGS: Bowel: Nonobstructive bowel gas pattern. [id number] amount of stool. Multiple ovoid radiopaque densities throughout the colon, likely related to ingested material. Hiatal hernia. Soft tissues: No sign of soft tissue mass. No suspicious calcifications. Bones: Degenerative changes. IMPRESSION: Nonobstructive bowel gas pattern. Moderate to large amount of stool.. Dictated by Varinder Hernandez MD @ 01/01/2018 5:01:11 AM Dictated by: Varinder Hernandez MD @ 01/01/2018 05:01:19 (Electronic Signature) Report Signed by Proxy. MICHAEL
--- NOTE | 2018-01-01 16:17 | CR ---
EXAM DATE: 01/01/18 PATIENT'S AGE: 77 Patient: VALENTÍN BREWER Facility: [place], [place] Site . Site : 1940 Study: XRay Chest [id number]/9/2018 4:52:07 AM Ordering Physician: Joelle Peraza Final Report: INDICATION: SOB TECHNIQUE: Chest 1 view COMPARISON: None FINDINGS: Cardiovascular and mediastinum: Heart size and vasculature are normal in caliber and appearance. Mediastinum is within normal limits. Lungs and pleural space: Scarring throughout both lungs. No sign of pleural effusion. No pneumothorax. Bones: Degenerative changes. Other: Hiatal hernia IMPRESSION: No acute cardiopulmonary disease Dictated by Varinder Hernandez MD @ 01/01/2018 5:08:25 AM Dictated by: Varinder Hernandez MD @ 01/01/2018 05:09:14 (Electronic Signature) Report Signed by Proxy. MTDIvana
--- NOTE | 2018-01-01 18:54 | PCM.CONS ---
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 He reports for the last week he has had some increased heartburn with nausea and vomiting. He reports once he vomits the heartburn stops. He denies emesis that is black, bloody or coffee ground in appearance. Because of his cerebral palsy, he doesn't have regular BMs. He treats this with as needed enemas and Ex-Lax by mouth. His last bowel movement was Saturday and it appeared normal (no hematochezia, diarrhea or melena). He was diagnosed with stomach ulcers 10 years ago he does not believe he had an EGD and has never had a colonoscopy. He takes a daily PPI for heartburn which he describes as a retrosternal burning. He denies fevers, worsening cough, has a cough at baseline , sinus congestion, chest pain or lower abdominal pain. He is wheelchair bound and lives with a brother who helps care for him. He does not see a primary care provider. He smokes 1-4 cigarettes daily, rare alcohol use and no recreational drug use. Denies heavy use of NSAIDs In the ED leukocytosis noted, 12, 680, hgb 5.9, hct 22.1 BUN 24 Cr 1.2, Lactate elevated 3.7. UA revealed +nitrites, large leukocyte esterase, +2 bacteria, WBC 19-26. H pylori negative. CXR negative. Abdominal X ray revealed non- obstructive bowel gas wit moderate to large amount of stool present. TSh 4.30. he was given Protonix 80 mg bolus and started on protonix gtt. 2 units PRBCs ordered to be given as well. Levaquin given for UTI. EKG revealed ST 110-120s. BP 110/60-70s. He had a CT of the abdomen pelvis performed. This revealed the following; 1. Large amount of rectal stool impaction noted 2. Suspicious 2.2 cm nodule within the lower pole of the left kidney and a similarly small 0.9 some ear nodule within the upper pole 3. Multiple undissolved pills throughout the colon 4. Mild generalized anasarca 5. 5 cm subcutaneous cyst overlying the left hip 6. Mild urinary bladder distention 7. Large hiatal hernia Abdomen Pain Score (Numeric/FACES): 3 - Related Data Allergies/Adverse Reactions: Allergies Allergy/AdvReac Type Severity Reaction Status Date / Time No Known Allergies Allergy Verified 01/01/18 04:13 Home Medications: Home Meds Omeprazole Magnesium [Prilosec Otc] 20 mg PO BID 06/25/17 [History] Past Medical History HEENT History: Reports: None Cardiovascular History: Reports: None. Denies: CAD, High Cholesterol, Hypertension, MT Respiratory History: Reports: None. Denies: COPD, PE Gastrointestinal History: Reports: Chronic Constipation, Diverticulosis, GERD, GI Bleed Genitourinary History: Reports: None. Denies: Chronic Renal Insuffiency Musculoskeletal History: Reports: Other (See Below) (no nambulatory, wheelchair bound due to CP) Neurological History: Reports: Cerebral Palsy Psychiatric History: Reports: None Endocrine/Metabolic History: Reports: None. Denies: Diabetes, Type II Hematologic History: Reports: None Immunologic History: Reports: None Oncologic (Cancer) History: Reports: None Dermatologic History: Reports: None - Infectious Disease History Infectious Disease History: Reports: None - Past Surgical History Head Surgeries/Procedures: Reports: None HEENT Surgical History: Reports: None Cardiovascular Surgical History: Reports: None Respiratory Surgical History: Reports: None GI Surgical History: Reports: Colon, Hernia, Abdominal Male Surgical History: Reports: None Endocrine Surgical History: Reports: None Neurological Surgical History: Reports: None Musculoskeletal Surgical History: Reports: None Dermatological Surgical History: Reports: None Social & Family History - Family History Family Medical History: Noncontributory - Tobacco Use Smoking Status *Q: Current Every Day Smoker Years of Tobacco use: 55 Packs/Tins Daily: 0.1 Second Hand Smoke Exposure: No - Caffeine Use Caffeine Use: Reports: Coffee - Recreational Drug Use Recreational Drug Use: No - Living Situation & Occupation Living situation: Reports: with Family (with brother) Occupation: Disabled H&P Review of Systems - Review of Systems: Review Of Systems: ROS reveals no pertinent complaints other than HPI. Exam - Exam Exam: See Below - Vital Signs Vital Signs: Last Vital Signs Temp 37.5 C 01/01/18 14:46 Pulse 96 01/01/18 14:46 Resp 18 01/01/18 14:46 BP 125/64 01/01/18 14:46 Pulse Ox 96 01/01/18 14:46 Weight: 48.988 kg - Exam General: Alert, Oriented, Cooperative HEENT: Conjunctiva Clear, Mucosa Moist & [place], Posterior Pharynx Clear Neck: Supple, Trachea Midline Lungs: Clear to Auscultation, Normal Respiratory Effort, Other (I could hear gastric sounds in the chest which is consistent with his hiatal hernia.) Cardiovascular: Regular Rate, Regular Rhythm GI/Abdominal Exam: Soft, Non-Tender, Distended (Mild), Other (Umbilical hernia reducible). No: Guarding, Rigid, Rebound Rectal (Males) Exam: Decreased Rectal Tone, Other (Digital rectal exam revealed a large amount of very soft pliable stool in the rectal vault. I was able to remove this easily. A partial disimpaction was performed.) Back Exam: Other (No evidence of any ulceration along the back or buttocks area. There are some superficial abrasions that appear old along the left buttock.) Extremities: Other (Chronic contractures of the lower extremities and left upper extremity. Superficial abrasion noted in bilateral knees.) Skin: Warm, Dry, Intact Neuro Extensive - Mental Status: Alert, Oriented x3 - Patient Data Lab Results Last 24 hrs: Laboratory Results - last 24 hr 01/01/18 01/01/18 01/01/18 Range/Units 04:33 04:40 04:40 WBC 12.68 H (4.0-11.0) K/uL RBC 3.49 L (4.50-5.90) M/uL Hgb 5.9 L (13.0-17.0) g/dL Hct 22.1 L (38.0-50.0) % MCV 63.3 L (80.0-98.0) fL MCH 16.9 L (27.0-32.0) pg MCHC 26.7 L (31.0-37.0) g/dL RDW Std Deviation 47.8 (28.0-62.0) fl RDW Coeff of Pierre 21 H (11.0-15.0) % Plt Count 362 (150-400) K/uL MPV 8.20 (7.40-12.00) fL Neut % (Auto) 83.4 H (48.0-80.0) % Lymph % (Auto) 8.8 L (16.0-40.0) % [place] % (Auto) 7.4 (0.0-15.0) % Eos % (Auto) 0.2 (0.0-7.0) % Baso % (Auto) 0.2 (0.0-1.5) % Neut # (Auto) 10.6 H (1.4-5.7) K/uL Lymph # (Auto) 1.1 (0.6-2.4) K/uL [place] # (Auto) 0.9 H (0.0-0.8) K/uL Eos # (Auto) 0.0 (0.0-0.7) K/uL Baso # (Auto) 0.0 (0.0-0.1) K/uL Nucleated RBC % 0.3 /100WBC Nucleated RBCs # 0 K/uL Lactate (0.20-2.00) mmol/L Sodium 136 (136-148) mmol/L Potassium 5.0 (3.5-5.1) mmol/L Chloride 102 (98-107) mmol/L Carbon Dioxide 22.0 (21.0-32.0) mmol/L BUN 24 H (7.0-18.0) mg/dL Creatinine 1.2 (0.8-1.3) mg/dL Est Cr Clr Drug Dosing TNP Estimated GFR (MDRD) 58.6 ml/min Glucose 124 H (74-106) mg/dL Calcium 10.1 (8.5-10.1) mg/dL Magnesium 1.8 (1.5-2.0) mg/dL Total Bilirubin 0.2 (0.2-1.0) mg/dL AST 16 (15-37) IU/L ALT 21 (14-63) IU/L Alkaline Phosphatase 62 (46-116) U/L Total Protein 8.3 H (6.4-8.2) g/dL Albumin 3.9 (3.4-5.0) g/dL Globulin 4.4 H (2.0-3.5) g/dL Albumin/Globulin Ratio 0.9 L (1.3-2.8) Amylase 61 (25-115) U/L Lipase 131 (73-393) U/L TSH 3rd Generation 4.30 H (0.36-3.74) uIU/mL Urine Color YELLOW Urine Appearance CLOUDY Urine pH 5.5 (5.0-8.0) Ur Specific [place] 1.025 (1.001-1.035) Urine Protein TRACE (NEGATIVE) mg/dL Urine Glucose (UA) NEGATIVE (NEGATIVE) mg/dL Urine Ketones NEGATIVE (NEGATIVE) mg/dL Urine Occult Blood TRACE-INTACT (NEGATIVE) Urine Nitrite POSITIVE H (NEGATIVE) Urine Bilirubin NEGATIVE (NEGATIVE) Urine Urobilinogen 0.2 (<2.0) EU/dL Ur Leukocyte Esterase LARGE (NEGATIVE) Urine RBC 0-2 (0-2/HPF) Urine WBC 19-26 (0-5/HPF) Ur Epithelial Cells FEW (NONE-FEW) Urine Bacteria 2+ H (NEGATIVE) Urine Mucus LIGHT (NONE-MOD) H. pylori IgG Antibody (NEG) Blood Type Antibody Screen Crossmatch 01/01/18 01/01/18 01/01/18 Range/Units 04:40 04:40 05:10 WBC (4.0-11.0) K/uL RBC (4.50-5.90) M/uL Hgb (13.0-17.0) g/dL Hct (38.0-50.0) % MCV (80.0-98.0) fL MCH (27.0-32.0) pg MCHC (31.0-37.0) g/dL RDW Std Deviation (28.0-62.0) fl RDW Coeff of Pierre (11.0-15.0) % Plt Count (150-400) K/uL MPV (7.40-12.00) fL Neut % (Auto) (48.0-80.0) % Lymph % (Auto) (16.0-40.0) % [place] % (Auto) (0.0-15.0) % Eos % (Auto) (0.0-7.0) % Baso % (Auto) (0.0-1.5) % Neut # (Auto) (1.4-5.7) K/uL Lymph # (Auto) (0.6-2.4) K/uL [place] # (Auto) (0.0-0.8) K/uL Eos # (Auto) (0.0-0.7) K/uL Baso # (Auto) (0.0-0.1) K/uL Nucleated RBC % /100WBC Nucleated RBCs # K/uL Lactate 3.7 H (0.20-2.00) mmol/L Sodium (136-148) mmol/L Potassium (3.5-5.1) mmol/L Chloride (98-107) mmol/L Carbon Dioxide (21.0-32.0) mmol/L BUN (7.0-18.0) mg/dL Creatinine (0.8-1.3) mg/dL Est Cr Clr Drug Dosing Estimated GFR (MDRD) ml/min Glucose (74-106) mg/dL Calcium (8.5-10.1) mg/dL Magnesium (1.5-2.0) mg/dL Total Bilirubin (0.2-1.0) mg/dL AST (15-37) IU/L ALT (14-63) IU/L Alkaline Phosphatase (46-116) U/L Total Protein (6.4-8.2) g/dL Albumin (3.4-5.0) g/dL Globulin (2.0-3.5) g/dL Albumin/Globulin Ratio (1.3-2.8) Amylase (25-115) U/L Lipase (73-393) U/L TSH 3rd Generation (0.36-3.74) uIU/mL Urine Color Urine Appearance Urine pH (5.0-8.0) Ur Specific [place] (1.001-1.035) Urine Protein (NEGATIVE) mg/dL Urine Glucose (UA) (NEGATIVE) mg/dL Urine Ketones (NEGATIVE) mg/dL Urine Occult Blood (NEGATIVE) Urine Nitrite (NEGATIVE) Urine Bilirubin (NEGATIVE) Urine Urobilinogen (<2.0) EU/dL Ur Leukocyte Esterase (NEGATIVE) Urine RBC (0-2/HPF) Urine WBC (0-5/HPF) Ur Epithelial Cells (NONE-FEW) Urine Bacteria (NEGATIVE) Urine Mucus (NONE-MOD) H. pylori IgG Antibody NEGATIVE (NEG) Blood Type O NEGATIVE Antibody Screen NEGATIVE Crossmatch See Detail 01/01/18 Range/Units 09:30 WBC (4.0-11.0) K/uL RBC (4.50-5.90) M/uL Hgb (13.0-17.0) g/dL Hct (38.0-50.0) % MCV (80.0-98.0) fL MCH (27.0-32.0) pg MCHC (31.0-37.0) g/dL RDW Std Deviation (28.0-62.0) fl RDW Coeff of Pierre (11.0-15.0) % Plt Count (150-400) K/uL MPV (7.40-12.00) fL Neut % (Auto) (48.0-80.0) % Lymph % (Auto) (16.0-40.0) % [place] % (Auto) (0.0-15.0) % Eos % (Auto) (0.0-7.0) % Baso % (Auto) (0.0-1.5) % Neut # (Auto) (1.4-5.7) K/uL Lymph # (Auto) (0.6-2.4) K/uL [place] # (Auto) (0.0-0.8) K/uL Eos # (Auto) (0.0-0.7) K/uL Baso # (Auto) (0.0-0.1) K/uL Nucleated RBC % /100WBC Nucleated RBCs # K/uL Lactate 1.8 (0.20-2.00) mmol/L Sodium (136-148) mmol/L Potassium (3.5-5.1) mmol/L Chloride (98-107) mmol/L Carbon Dioxide (21.0-32.0) mmol/L BUN (7.0-18.0) mg/dL Creatinine (0.8-1.3) mg/dL Est Cr Clr Drug Dosing Estimated GFR (MDRD) ml/min Glucose (74-106) mg/dL Calcium (8.5-10.1) mg/dL Magnesium (1.5-2.0) mg/dL Total Bilirubin (0.2-1.0) mg/dL AST (15-37) IU/L ALT (14-63) IU/L Alkaline Phosphatase (46-116) U/L Total Protein (6.4-8.2) g/dL Albumin (3.4-5.0) g/dL Globulin (2.0-3.5) g/dL Albumin/Globulin Ratio (1.3-2.8) Amylase (25-115) U/L Lipase (73-393) U/L TSH 3rd Generation (0.36-3.74) uIU/mL Urine Color Urine Appearance Urine pH (5.0-8.0) Ur Specific [place] (1.001-1.035) Urine Protein (NEGATIVE) mg/dL Urine Glucose (UA) (NEGATIVE) mg/dL Urine Ketones (NEGATIVE) mg/dL Urine Occult Blood (NEGATIVE) Urine Nitrite (NEGATIVE) Urine Bilirubin (NEGATIVE) Urine Urobilinogen (<2.0) EU/dL Ur Leukocyte Esterase (NEGATIVE) Urine RBC (0-2/HPF) Urine WBC (0-5/HPF) Ur Epithelial Cells (NONE-FEW) Urine Bacteria (NEGATIVE) Urine Mucus (NONE-MOD) H. pylori IgG Antibody (NEG) Blood Type Antibody Screen Crossmatch Result Diagrams: 01/01/18 04:40 01/01/18 04:40 Jose F Results Last 24 hrs: Microbiology 01/01/18 09:50 Stool Occult Blood (JOSE F) - Final Stool / Feces POSITIVE OCCULT BLOOD Consult PN Assessment/Plan Procedures: Procedures ASSAY OF AMYLASE (06/25/17) ASSAY OF LIPASE (06/25/17) ASSAY OF MAGNESIUM (06/25/17) ASSAY THYROID STIM HORMONE (06/25/17) COMPLETE CBC W/AUTO DIFF WBC (06/25/17) COMPREHEN METABOLIC PANEL (06/25/17) EMERGENCY DEPT VISIT (06/25/17) FREE ASSAY (FT-3) (06/25/17) (1) Anemia SNOMED Code(s): 800405049 Code(s): D64.9 - ANEMIA, UNSPECIFIED Current Visit: Yes Qualifiers: Anemia type: unspecified type Qualified Code(s): D64.9 - Anemia, unspecified (2) Constipation SNOMED Code(s): 30258823 Code(s): K59.00 - CONSTIPATION, UNSPECIFIED Current Visit: Yes (3) Elevated lactic acid level SNOMED Code(s): 1535720 Code(s): R79.89 - OTHER SPECIFIED ABNORMAL FINDINGS OF BLOOD CHEMISTRY Current Visit: Yes (4) UTI (urinary tract infection) SNOMED Code(s): 94587890 Code(s): N39.0 - URINARY TRACT INFECTION, SITE NOT SPECIFIED Current Visit : Yes Qualifiers: Urinary tract infection type: site unspecified Hematuria presence: without hematuria Qualified Code(s): N39.0 - Urinary tract infection, site not specified (5) Upper GI bleeding SNOMED Code(s): 83047206 Code(s): K92.2 - GASTROINTESTINAL HEMORRHAGE, UNSPECIFIED Current Visit: Yes (6) Cerebral palsy SNOMED Code(s): 686475619 Code(s): G80.9 - CEREBRAL PALSY, UNSPECIFIED Current Visit: Yes (7) Hx of gastroesophageal reflux (GERD) SNOMED Code(s): 31939978498926 Code(s): Z87.19 - PERSONAL HISTORY OF OTHER DISEASES OF THE DIGESTIVE SYSTEM Current Visit: Yes (8) Hiatal hernia SNOMED Code(s): 73556950 Code(s): K44.9 - DIAPHRAGMATIC HERNIA WITHOUT OBSTRUCTION OR GANGRENE Current Visit: Yes (9) Renal lesion SNOMED Code(s): 58032852110863 Code(s): N28.9 - DISORDER OF KIDNEY AND URETER, UNSPECIFIED Current Visit: Yes Problem List Initiated/Reviewed/Updated: Yes My Orders Last 24 Hours: Anemia/positive fecal occult blood/hiatal hernia: The patient has a very large hiatal hernia which could be causing Darryl's ulcers leading to an acute GI bleed. His H pylori was negative. He appears stable at this time, is toelrating a diet and his lactate has normalized. We'll recheck his hemoglobin after his given those 2 units and repeat labs in the morning. On rectal exam his stool does not appear to be melanic. I did not see any stigmata of recent bright red bleeding. If his hemoglobin stays stable I would have him follow-up with a electrician outside in [place] for EGD and colonoscopy. His anemia could be from other factors as well however I would start with a GI workup in a bigger center with more resources given his health issues. As long as his morning labs look okay he can have breakfast. If his hemoglobin does not improve/worsens or he should decline clinically he should be transferred to my note for further cares. Renal Lesion: Patient will need to follow-up with urologist regarding the suspicious nodules in the left kidney. Stool impaction: On digital rectal exam the patient did have a large amount of stool in his colon however this was soft and easy to disimpact. Due to his cerebral palsy he most likely has poor colonic motility. Because of this, the patient should be on a strict bowel regiment including daily stool softeners (i would suggest miralax but he can take Dulcolax or senna) and scheduled enemas. I explained to him that long-term fecal impaction can lead to sterocoral ulcers or other bowel issues (i.e. sigmoid volvulus). I would also suggest that the patient establish a primary care provider given his age and other health issues. Please call with any further questions or concerns.
[2018-01-01] MEDS: Pantoprazole 40 MG Vial IVPUSH SCH (19:20)
[2018-01-01] MEDS: Sucralfate Suspension 1 GM/10 ML Cup PO SCH (20:39)
[2018-01-02 05:50] LABS: CHLORIDE,CL 104 mmol/L (98-107); SODIUM,NA 136 mmol/L (136-148)
[2018-01-02] MEDS: Sucralfate Suspension 1 GM/10 ML Cup PO SCH ×4 (06:58→20:41)
[2018-01-02] MEDS: Pantoprazole 40 MG Vial IVPUSH SCH ×2 (06:58→17:48)
[2018-01-02] MEDS: cefTRIAXone 1 GM in Sodium Chloride 0.9% 50 ML IV SCH (07:02)
--- NOTE | 2018-01-02 07:18 | PCM.PN ---
- General Info Date of Service: 01/02/18 Admission Dx/Problem (Free Text): Admission Diagnosis/Problem Admission Diagnosis/Problem Anemia Subjective Update: Feeling better this morning, no heart burn currently. had small BM overnight. No chest pain, SOB or abdominal pain. Functional Status: Reports: Pain Controlled, Tolerating Diet, Urinating - Review of Systems General: Reports: No Symptoms. Denies: Fever, Weakness, Fatigue, Malaise HEENT: Reports: No Symptoms. Denies: Headaches, Sore Throat, Visual Changes Pulmonary: Reports: No Symptoms. Denies: Shortness of Breath Cardiovascular: Reports: No Symptoms. Denies: Chest Pain Gastrointestinal: Reports: Constipation. Denies: Abdominal Pain, Nausea, Vomiting Genitourinary: Reports: No Symptoms. Denies: Dysuria, Frequency, Burning Musculoskeletal: Reports: No Symptoms Skin: Reports: No Symptoms Neurological: Reports: No Symptoms Psychiatric: Reports: No Symptoms - Patient Data Vitals - Most Recent: Last Vital Signs Temp 98.2 F 01/02/18 04:00 Pulse 56 L 01/02/18 04:00 Resp 19 01/02/18 04:00 BP 110/68 01/02/18 04:00 Pulse Ox 95 01/02/18 04:00 Weight - Most Recent: 48.988 kg I&O - Last 24 Hours: Intake & Output 01/01/18 01/02/18 01/02/18 22:59 06:59 14:59 Intake Total 1569 400 Output Total 850 500 Balance 719 -100 Lab Results Last 24 Hours: Laboratory Results - last 24 hr 01/01/18 01/01/18 01/01/18 Range/Units 05:10 09:30 20:33 WBC (4.0-11.0) K/uL RBC (4.50-5.90) M/uL Hgb 7.8 L (13.0-17.0) g/dL Hct 26.9 L (38.0-50.0) % MCV (80.0-98.0) fL MCH (27.0-32.0) pg MCHC (31.0-37.0) g/dL RDW Std Deviation (28.0-62.0) fl RDW Coeff of Pierre (11.0-15.0) % Plt Count (150-400) K/uL MPV (7.40-12.00) fL Neut % (Auto) (48.0-80.0) % Lymph % (Auto) (16.0-40.0) % Roane % (Auto) (0.0-15.0) % Eos % (Auto) (0.0-7.0) % Baso % (Auto) (0.0-1.5) % Neut # (Auto) (1.4-5.7) K/uL Lymph # (Auto) (0.6-2.4) K/uL Roane # (Auto) (0.0-0.8) K/uL Eos # (Auto) (0.0-0.7) K/uL Baso # (Auto) (0.0-0.1) K/uL Nucleated RBC % /100WBC Nucleated RBCs # K/uL Lactate 1.8 (0.20-2.00) mmol/L Sodium (136-148) mmol/L Potassium (3.5-5.1) mmol/L Chloride (98-107) mmol/L Carbon Dioxide (21.0-32.0) mmol/L BUN (7.0-18.0) mg/dL Creatinine (0.8-1.3) mg/dL Est Cr Clr Drug Dosing mL/min Estimated GFR (MDRD) ml/min Glucose (74-106) mg/dL Calcium (8.5-10.1) mg/dL Blood Type O NEGATIVE Antibody Screen NEGATIVE Crossmatch See Detail 01/02/18 01/02/18 Range/Units 05:10 05:10 WBC 6.38 (4.0-11.0) K/uL RBC 3.73 L (4.50-5.90) M/uL Hgb 7.4 L (13.0-17.0) g/dL Hct 25.2 L (38.0-50.0) % MCV 67.6 L (80.0-98.0) fL MCH 19.8 L (27.0-32.0) pg MCHC 29.4 L (31.0-37.0) g/dL RDW Std Deviation 58.7 (28.0-62.0) fl RDW Coeff of Pierre 24 H (11.0-15.0) % Plt Count 261 (150-400) K/uL MPV 8.80 (7.40-12.00) fL Neut % (Auto) 61.9 (48.0-80.0) % Lymph % (Auto) 20.4 (16.0-40.0) % Roane % (Auto) 11.1 (0.0-15.0) % Eos % (Auto) 6.1 (0.0-7.0) % Baso % (Auto) 0.5 (0.0-1.5) % Neut # (Auto) 4.0 (1.4-5.7) K/uL Lymph # (Auto) 1.3 (0.6-2.4) K/uL Roane # (Auto) 0.7 (0.0-0.8) K/uL Eos # (Auto) 0.4 (0.0-0.7) K/uL Baso # (Auto) 0.0 (0.0-0.1) K/uL Nucleated RBC % 0.0 /100WBC Nucleated RBCs # 0 K/uL Lactate (0.20-2.00) mmol/L Sodium 136 (136-148) mmol/L Potassium 4.0 (3.5-5.1) mmol/L Chloride 104 (98-107) mmol/L Carbon Dioxide 22.3 (21.0-32.0) mmol/L BUN 18 (7.0-18.0) mg/dL Creatinine 1.0 (0.8-1.3) mg/dL Est Cr Clr Drug Dosing 42.18 mL/min Estimated GFR (MDRD) > 60.0 ml/min Glucose 106 (74-106) mg/dL Calcium 8.6 (8.5-10.1) mg/dL Blood Type Antibody Screen Crossmatch Jose F Results Last 24 Hours: Microbiology 01/01/18 05:20 Aerobic Blood Culture - Preliminary Blood - Venous - Lab Draw NO GROWTH AFTER 1 DAY Anaerobic Blood Culture - Preliminary NO GROWTH AFTER 1 DAY 01/01/18 05:10 Aerobic Blood Culture - Preliminary Blood - Venous NO GROWTH AFTER 1 DAY Anaerobic Blood Culture - Preliminary NO GROWTH AFTER 1 DAY 01/01/18 09:50 Stool Occult Blood (JOSE F) - Final Stool / Feces POSITIVE OCCULT BLOOD Med Orders - Current: Current Medications Bisacodyl (Dulcolax) 10 mg RECTAL DAILY PRN PRN Reason: Constipation Ceftriaxone Sodium 1 gm/ (Sodium Chloride) 50 mls @ 100 mls/hr IV Q24H [facility] Last Admin: 01/02/18 07:02 Dose: 100 mls/hr Ondansetron HCl (Zofran) 4 mg IVPUSH Q4H PRN PRN Reason: Nausea/Vomiting Pantoprazole Sodium (Protonix Iv) 40 mg IVPUSH Q12H [facility] Last Admin: 01/02/18 06:58 Dose: 40 mg Sodium Chloride (Saline Flush) 10 ml FLUSH ASDIRECTED PRN PRN Reason: Keep Vein Open Last Admin: 01/01/18 05:13 Dose: 10 ml Sodium Chloride (Saline Flush) 2.5 ml FLUSH ASDIRECTED PRN PRN Reason: Keep Vein Open Last Admin: 01/01/18 05:13 Dose: 2.5 ml Sucralfate (Carafate) 1 gm PO QIDACANDBED [facility] Last Admin: 01/02/18 06:58 Dose: 1 gm Discontinued Medications Bisacodyl (Dulcolax) 10 mg RECTAL DAILY [facility] Last Admin: 01/01/18 14:38 Dose: Not Given Sodium Chloride (Normal Saline) 1,000 mls @ 83 mls/hr IV ASDIRECTED [facility] Last Admin: 01/01/18 05:13 Dose: 83 mls/hr Pantoprazole Sodium 80 mg/ (Sodium Chloride) 100 mls @ 10 mls/hr IV .Continuous [facility] Stop: 01/01/18 15:34 Last Admin: 01/01/18 05:35 Dose: 10 mls/hr Levofloxacin/Dextrose 500 mg/ (Premix) 100 mls @ 100 mls/hr IV ONETIME ONE Stop: 01/01/18 06:06 Last Admin: 01/01/18 05:24 Dose: 100 mls/hr Ceftriaxone Sodium/Dextrose 1 (gm/ Premix) 50 mls @ 100 mls/hr IV Q24H [facility] Last Admin: 01/01/18 07:25 Dose: Not Given Ceftriaxone Sodium/Dextrose 1 (gm/ Premix) 50 mls @ 100 mls/hr IV Q24H [facility] Pantoprazole Sodium 80 mg/ (Sodium Chloride) 100 mls @ 10 mls/hr IV Q10H [facility] Iopamidol (Isovue Multipack-370 (76%)) 60 ml IVPUSH ONETIME STA Stop: 01/01/18 14:13 Last Admin: 01/01/18 14:12 Dose: 60 ml Pantoprazole Sodium (Protonix Iv) 80 mg IVPUSH .BOLUS ONE Stop: 01/01/18 04:59 Last Admin: 01/01/18 05:17 Dose: 80 mg Pantoprazole Sodium (Protonix Iv) 80 mg IV Q8HR JENNIFER - Exam General: Alert, Oriented, Cooperative, No Acute Distress Neck: Supple Lungs: Clear to Auscultation, Normal Respiratory Effort Cardiovascular: Regular Rate, Regular Rhythm GI/Abdominal Exam: Normal Bowel Sounds, Soft, Non-Tender, No Organomegaly, No Distention, No Abnormal Bruit, No Mass, Pelvis Stable Extremities: Normal Inspection, Normal Range of Motion, Non-Tender, No Pedal Edema, Normal Capillary Refill Neurological: No New Focal Deficit Psy/Mental Status: Alert, Normal Affect, Normal Mood - Problem List & Annotations (1) Upper GI bleeding SNOMED Code(s): 45541486 Code(s): K92.2 - GASTROINTESTINAL HEMORRHAGE, UNSPECIFIED Status: Acute Current Visit: Yes (2) Anemia SNOMED Code(s): 628237152 Code(s): D64.9 - ANEMIA, UNSPECIFIED Status: Acute Current Visit: Yes Qualifiers: Anemia type: unspecified type Qualified Code(s): D64.9 - Anemia, unspecified (3) Elevated lactic acid level SNOMED Code(s): 6033836 Code(s): R79.89 - OTHER SPECIFIED ABNORMAL FINDINGS OF BLOOD CHEMISTRY Status: Acute Current Visit: Yes (4) UTI (urinary tract infection) SNOMED Code(s): 03646043 Code(s): N39.0 - URINARY TRACT INFECTION, SITE NOT SPECIFIED Status: Acute Current Visit: Yes Qualifiers: Urinary tract infection type: site unspecified Hematuria presence: without hematuria Qualified Code(s): N39.0 - Urinary tract infection, site not specified (5) Cerebral palsy SNOMED Code(s): 184531790 Code(s): G80.9 - CEREBRAL PALSY, UNSPECIFIED Status: Chronic Current Visit: Yes (6) Constipation SNOMED Code(s): 71160521 Code(s): K59.00 - CONSTIPATION, UNSPECIFIED Status: Acute Current Visit: Yes (7) Hx of gastroesophageal reflux (GERD) SNOMED Code(s): 23422252622298 Code(s): Z87.19 - PERSONAL HISTORY OF OTHER DISEASES OF THE DIGESTIVE SYSTEM Status: Chronic Current Visit: Yes (8) Hiatal hernia SNOMED Code(s): 58959962 Code(s): K44.9 - DIAPHRAGMATIC HERNIA WITHOUT OBSTRUCTION OR GANGRENE Status: Acute Current Visit: Yes (9) Renal lesion SNOMED Code(s): 63947104943915 Code(s): N28.9 - DISORDER OF KIDNEY AND URETER, UNSPECIFIED Status: Acute Current Visit: Yes - Problem List Review Problem List Initiated/Reviewed/Updated: Yes - My Orders Last 24 Hours: My Active Orders 01/01/18 09:13 Resuscitation Status Routine 01/01/18 11:59 Enema [RC] ASDIRECTED 01/01/18 12:33 Consult to Physician [CONS] Routine 01/01/18 12:34 Notify Provider Consults [RC] ASDIRECTED 01/01/18 13:39 Bisacodyl [Dulcolax] 10 mg RECTAL DAILY PRN 01/01/18 18:00 Pantoprazole [ProTONIX IV] 40 mg IVPUSH Q12H 01/01/18 21:00 Sucralfate [Carafate] 1 gm PO QIDACANDBED 01/03/18 05:11 BMP [BASIC METABOLIC PANEL,BMP] [CHEM] AM CBC WITH AUTO DIFF [HEME] AM 01/04/18 05:11 BMP [BASIC METABOLIC PANEL,BMP] [CHEM] AM CBC WITH AUTO DIFF [HEME] AM - Plan Plan:: Thi 77 hanh old male admitted with suspected upper GI bleed, anemia requiring transfusion, and UTI 1. Upper GIB: Hgb 7.4 today stable after transfusion which was 7.8. Will transfuse another 2 units now and monitor HH after transfusion. Hgb goal should be near 10. Remains hemodynamically stable. Continue Protonix IV BID and Carafate QID. Patient tolerating regular diet. Dr Werner consulted. Recommended CT abd/pelvis. This revealed "large amount of rectal stool impaction noted, suspicious 2.2 cm nodule within the lower pole of the left kidney and similarly a small 0.9 nodule within the upper pole, generalized anasarca, 5 cm subcutaneous cyst overlying L hip, and large hiatal hernia. Dr Werner recommended monitoring and outpatient follow up in [place] with GI for EGD and colonoscopy, will arrange this. Regarding noted were renal lesions, which we will arrange follow up with Urology here in [place] for further evaluation. Along with establishing him with a PCP to follow through with medical care going forward since he has not seen a PCP in over 10 years. 2. UTI: BC negative x 1 day. UC pending. Continue Rocephin. Lactate improved with IVFs. 3. Constipation: Need to establish bowel regimen. Start Miralax daily. Will give Dulcolax rectally PRN and Enema PRN. Encouraged nursing to give today to get bowels moving. 4. Cerebral palsy: Stable. Wheelchair bound, non-ambulatory VTE prophylaxis: SCDs due to anemia and suspected upper GI bleed. Dispo: 2-3 days pending improvement.
[2018-01-02] MEDS: Polyethylene Glycol 3350 Powder 17 GM Packet PO SCH (11:48)
[2018-01-03 05:48] LABS: CHLORIDE,CL 106 mmol/L (98-107); SODIUM,NA 138 mmol/L (136-148)
[2018-01-03] MEDS: Pantoprazole 40 MG Vial IVPUSH SCH (07:01)
[2018-01-03] MEDS: Sucralfate Suspension 1 GM/10 ML Cup PO SCH ×2 (07:03→11:27)
[2018-01-03] MEDS: cefTRIAXone 1 GM in Sodium Chloride 0.9% 50 ML IV SCH (07:05)
--- NOTE | 2018-01-03 09:22 | PCM.DCSUM1 ---
Discharge Summary - Hospital Course Brief History: This 77 year old male with pmh of cerebal palsy and gastric ulcers presented to the ED with concerns of increased malaise and decreased energy. He reports for the last week he has had some increased heartburn with nausea and vomiting. He reports once he vomits the heartburn stops. He denies emesis that is black, bloody or coffee ground in appearance. He reports he doesn 't have regular BMs, but had one on Saturday and it appeared normal, not black or with raquel blood. He taking a stool softener for bowel regimen. He denies diarrhea. He denies fevers, worsening cough, has a cough at baseline, sinus congestion, chest pain or lower abdominal pain. He reports the heartburn creates a chest pain sensation, but its burning in nature. He is wheelchair bound and lives with a brother who helps care for him. He reports he doesn't think he has had a EGD or colonscopy recently, "maybe when I was a child". He reports he takes Prilosec for heartburn daily, but it hasn't been helping recently. He reports smoking 1-4 cigarettes daily, rare alcohol use and no recreational drug use. Denies heavy use of NSAIDs. In the ED leukocytosis noted , 12, 680, hgb 5.9, hct 22.1 BUN 24 Cr 1.2, Lactate elevated 3.7. UA revealed + nitrites, large leukocyte esterase, +2 bacteria, WBC 19-26. H pylori negative. CXR negative. Abdominal X ray revealed non-obstructive bowel gas with moderate to large amount of stool present. TSh 4.30. he was given Protonix 80 mg bolus and started on protonix gtt. 2 units PRBCs ordered to be given as well. Levaquin given for UTI. EKG revealed ST 110-120s. BP 110/60-70s. - Discharge Data Discharge Date: 01/03/18 Discharge Disposition: Home, Self-Care 01 Condition: Good - Discharge Diagnosis/Problem(s) (1) Upper GI bleeding SNOMED Code(s): 51724766 ICD Code: K92.2 - GASTROINTESTINAL HEMORRHAGE, UNSPECIFIED Status: Acute Current Visit: Yes (2) Anemia SNOMED Code(s): 935374542 ICD Code: D64.9 - ANEMIA, UNSPECIFIED Status: Acute Current Visit: Yes Qualifiers: Anemia type: unspecified type Qualified Code(s): D64.9 - Anemia, unspecified (3) UTI (urinary tract infection) SNOMED Code(s): 01043064 ICD Code: N39.0 - URINARY TRACT INFECTION, SITE NOT SPECIFIED Status: Acute Current Visit: Yes Qualifiers: Urinary tract infection type: site unspecified Hematuria presence: without hematuria Qualified Code(s): N39.0 - Urinary tract infection, site not specified (4) Elevated lactic acid level SNOMED Code(s): 4086868 ICD Code: R79.89 - OTHER SPECIFIED ABNORMAL FINDINGS OF BLOOD CHEMISTRY Status: Resolved Current Visit: Yes (5) Constipation SNOMED Code(s): 35337946 ICD Code: K59.00 - CONSTIPATION, UNSPECIFIED Status: Acute Current Visit : Yes (6) Cerebral palsy SNOMED Code(s): 360254254 ICD Code: G80.9 - CEREBRAL PALSY, UNSPECIFIED Status: Chronic Current Visit: Yes (7) Hx of gastroesophageal reflux (GERD) SNOMED Code(s): 67580821655695 ICD Code: Z87.19 - PERSONAL HISTORY OF OTHER DISEASES OF THE DIGESTIVE SYSTEM Status: Chronic Current Visit: Yes (8) Hiatal hernia SNOMED Code(s): 97546522 ICD Code: K44.9 - DIAPHRAGMATIC HERNIA WITHOUT OBSTRUCTION OR GANGRENE Status: Acute Current Visit: Yes (9) Renal lesion SNOMED Code(s): 48124857207307 ICD Code: N28.9 - DISORDER OF KIDNEY AND URETER, UNSPECIFIED Status: Acute Current Visit: Yes - Patient Summary/Data Consults: Consultations 01/01/18 12:33 Consult to Physician [CONS] Routine - Patient Instructions Diet: Regular Diet as Tolerated Activity: As Tolerated Showering/Bathing: May Shower Notify Provider of: Fever, Increased Pain, Swelling and Redness, Drainage, Nausea and/or Vomiting - Discharge Plan Prescriptions/Med Rec: Cephalexin [Keflex] 500 mg PO Q12H #4 capsule Pantoprazole Sodium [Protonix] 40 mg PO BID #60 tablet. Polyethylene Glycol 3350 [MiraLAX] 17 gm PO Q2D #1 bottle Sucralfate [Carafate] 1 gm PO QIDACANDBED #120 tablet Home Medications: Home Meds Cephalexin [Keflex] 500 mg PO Q12H #4 capsule 01/03/18 [Rx] Pantoprazole Sodium [Protonix] 40 mg PO BID #60 tablet. 01/03/18 [Rx] Polyethylene Glycol 3350 [MiraLAX] 17 gm PO Q2D #1 bottle 01/03/18 [Rx] Sucralfate [Carafate] 1 gm PO QIDACANDBED #120 tablet 01/03/18 [Rx] Patient Handouts: Anemia, Sucralfate tablets, Cephalexin tablets or capsules, Pantoprazole tablets, Polyethylene Glycol powder Referrals: Jessica Mayo NP [Ordering Only Provider] - 03/06/18 2:30 pm Sampson Santo MD [Physician] - 01/09/18 9:00 am Marshal Aviles MD [Ordering Only Provider] - 01/30/18 3:45 pm - Discharge Summary/Plan Comment DC Time >30 min.: No Discharge Summary/Plan Comment: Discharge Diagnoses: Upper GI bleed Anemia Large hiatal hernia UTI- ecoli eckert sensitive Hx GERD Constipation Cerebral palsy Renal lesions Trung was admitted due to hgb of 5.9 and suspected upper GI bleed. He was transfused with a total of 4 units of PRBCs, and hgb elevating and stabilized at 10.2 today. Iron studies unable to be completed due to administration of blood. Recommend these at follow up. Heme positive stools, but no raquel blood in stools and stools not noted to be black or tarry in nature. Dr Werner was consulted for possible EGD, She recommended CT of abdomen/pelvis which revealed "large amount of rectal stool impaction noted, suspicious 2.2 cm nodule within the lower pole of the left kidney and similarly a small 0.9 nodule within the upper pole, generalized anasarca, 5 cm subcutaneous cyst overlying L hip, and large hiatal hernia. Dr Werner recommended stabilizing here with blood transfusion, and if he does not continue to bleed, have follow up with [facility] for EGD and colonoscopy due to large hiatal hernia. Brother, Jona was made aware of this. Both were also made aware of left renal lesions noted on CT and recommended follow up with urology. Family requested Dr Aviles in [place], we will arrange this follow up. We also recommended bowel regimen due to rectal stool impaction. He did start regimen here with Miralax, but Trung reports he has no control of his bowels and doesn't like to take medication regularly otherwise he is constantly going. I urged him it is better to keep stools regular than to become constipated. On admission UTI was noted as well and he was treated with Rocephin. UC returned today with eckert sensitive E coli, I will send him home on 2 more days of Keflex. I spoke with Jona regarding follow up with Gi in [place], which is arranged, as well as Urology. We also highly encouraged to establish care with PCP to help manage healthcare. We have set him up with Dr Santo, which family is agreeable with. he is to return to ED or clinic if concerns should arise. - General Info Date of Service: 01/03/18 Admission Dx/Problem (Free Text: Admission Diagnosis/Problem Admission Diagnosis/Problem Anemia Subjective Update: Feeling a lot better today. No heartburn or other pain. No chest pain or SOB. reports having continuous stools in small amounts. eager to be discharged home. Functional Status: Reports: Pain Controlled, Tolerating Diet, Urinating - Review of Systems General: Reports: No Symptoms. Denies: Fever, Weakness, Fatigue HEENT: Reports: No Symptoms Pulmonary: Reports: No Symptoms. Denies: Shortness of Breath Cardiovascular: Reports: No Symptoms. Denies: Chest Pain Gastrointestinal: Reports: No Symptoms. Denies: Abdominal Pain, Nausea, Vomiting Genitourinary: Reports: No Symptoms. Denies: Dysuria, Frequency, Burning Musculoskeletal: Reports: No Symptoms Skin: Reports: No Symptoms Neurological: Reports: No Symptoms Psychiatric: Reports: No Symptoms - Patient Data Vitals - Most Recent: Last Vital Signs Temp 98.2 F 01/03/18 04:00 Pulse 52 L 01/03/18 04:00 Resp 19 01/03/18 04:00 BP 103/50 L 01/03/18 04:00 Pulse Ox 96 01/03/18 04:00 Weight - Most Recent: 48.988 kg I&O - Last 24 hours: Intake & Output 01/02/18 01/03/18 01/03/18 22:59 06:59 14:59 Intake Total 1370 440 Output Total 400 875 Balance 970 -435 Lab Results - Last 24 hrs: Laboratory Results - last 24 hr 05/09/18 05/10/18 05/11/18 Range/Units 05:10 18:34 05:15 WBC 7.15 (4.0-11.0) K/uL RBC 4.68 (4.50-5.90) M/uL Hgb 10.0 L 10.2 L (13.0-17.0) g/dL Hct 32.3 L 33.7 L (38.0-50.0) % MCV 72.0 L (80.0-98.0) fL MCH 21.8 L (27.0-32.0) pg MCHC 30.3 L (31.0-37.0) g/dL RDW Std Deviation 64.7 H (28.0-62.0) fl RDW Coeff of Pierre 25 H (11.0-15.0) % Plt Count 203 (150-400) K/uL MPV 8.40 (7.40-12.00) fL Neut % (Auto) 64.5 (48.0-80.0) % Lymph % (Auto) 15.8 L (16.0-40.0) % [place]arrard % (Auto) 11.6 (0.0-15.0) % Eos % (Auto) 7.8 H (0.0-7.0) % Baso % (Auto) 0.3 (0.0-1.5) % Neut # (Auto) 4.6 (1.4-5.7) K/uL Lymph # (Auto) 1.1 (0.6-2.4) K/uL Garrard # (Auto) 0.8 (0.0-0.8) K/uL Eos # (Auto) 0.6 (0.0-0.7) K/uL Baso # (Auto) 0.0 (0.0-0.1) K/uL Nucleated RBC % 0.4 /100WBC Nucleated RBCs # 0 K/uL Sodium (136-148) mmol/L Potassium (3.5-5.1) mmol/L Chloride (98-107) mmol/L Carbon Dioxide (21.0-32.0) mmol/L BUN (7.0-18.0) mg/dL Creatinine (0.8-1.3) mg/dL Est Cr Clr Drug Dosing mL/min Estimated GFR (MDRD) ml/min Glucose (74-106) mg/dL Calcium (8.5-10.1) mg/dL Blood Type Cancelled Antibody Screen Cancelled Crossmatch See Detail 01/03/18 Range/Units 05:15 WBC (4.0-11.0) K/uL RBC (4.50-5.90) M/uL Hgb (13.0-17.0) g/dL Hct (38.0-50.0) % MCV (80.0-98.0) fL MCH (27.0-32.0) pg MCHC (31.0-37.0) g/dL RDW Std Deviation (28.0-62.0) fl RDW Coeff of Pierre (11.0-15.0) % Plt Count (150-400) K/uL MPV (7.40-12.00) fL Neut % (Auto) (48.0-80.0) % Lymph % (Auto) (16.0-40.0) % Garrard % (Auto) (0.0-15.0) % Eos % (Auto) (0.0-7.0) % Baso % (Auto) (0.0-1.5) % Neut # (Auto) (1.4-5.7) K/uL Lymph # (Auto) (0.6-2.4) K/uL Garrard # (Auto) (0.0-0.8) K/uL Eos # (Auto) (0.0-0.7) K/uL Baso # (Auto) (0.0-0.1) K/uL Nucleated RBC % /100WBC Nucleated RBCs # K/uL Sodium 138 (136-148) mmol/L Potassium 4.1 (3.5-5.1) mmol/L Chloride 106 (98-107) mmol/L Carbon Dioxide 24.5 (21.0-32.0) mmol/L BUN 19 H (7.0-18.0) mg/dL Creatinine 0.8 (0.8-1.3) mg/dL Est Cr Clr Drug Dosing 52.73 mL/min Estimated GFR (MDRD) > 60.0 ml/min Glucose 87 (74-106) mg/dL Calcium 8.5 (8.5-10.1) mg/dL Blood Type Antibody Screen Crossmatch CLAIRE Results - Last 24 hrs: Microbiology 01/01/18 04:33 Urine Culture - Final Urine, Clean Catch Escherichia Coli 01/01/18 05:20 Aerobic Blood Culture - Preliminary Blood - Venous - Lab Draw NO GROWTH AFTER 2 DAYS Anaerobic Blood Culture - Preliminary NO GROWTH AFTER 2 DAYS 01/01/18 05:10 Aerobic Blood Culture - Preliminary Blood - Venous NO GROWTH AFTER 2 DAYS Anaerobic Blood Culture - Preliminary NO GROWTH AFTER 2 DAYS Med Orders - Current: Current Medications Bisacodyl (Dulcolax) 10 mg RECTAL DAILY PRN PRN Reason: Constipation Last Admin: 01/02/18 08:58 Dose: 10 mg Ceftriaxone Sodium 1 gm/ (Sodium Chloride) 50 mls @ 100 mls/hr IV Q24H [facility] Last Admin: 01/03/18 07:05 Dose: 100 mls/hr Ondansetron HCl (Zofran) 4 mg IVPUSH Q4H PRN PRN Reason: Nausea/Vomiting Pantoprazole Sodium (Protonix Iv) 40 mg IVPUSH Q12H [facility] Last Admin: 01/03/18 07:01 Dose: 40 mg Polyethylene Glycol (Miralax) 17 gm PO DAILY [facility] Last Admin: 01/02/18 11:48 Dose: 17 gm Sodium Chloride (Saline Flush) 10 ml FLUSH ASDIRECTED PRN PRN Reason: Keep Vein Open Last Admin: 01/01/18 05:13 Dose: 10 ml Sodium Chloride (Saline Flush) 2.5 ml FLUSH ASDIRECTED PRN PRN Reason: Keep Vein Open Last Admin: 01/01/18 05:13 Dose: 2.5 ml Sucralfate (Carafate) 1 gm PO QIDACANDBED [facility] Last Admin: 01/03/18 07:03 Dose: 1 gm Discontinued Medications Bisacodyl (Dulcolax) 10 mg RECTAL DAILY [facility] Last Admin: 01/01/18 14:38 Dose: Not Given Sodium Chloride (Normal Saline) 1,000 mls @ 83 mls/hr IV ASDIRECTED [facility] Last Admin: 01/01/18 05:13 Dose: 83 mls/hr Pantoprazole Sodium 80 mg/ (Sodium Chloride) 100 mls @ 10 mls/hr IV .Continuous [facility] Stop: 01/01/18 15:34 Last Admin: 01/01/18 05:35 Dose: 10 mls/hr Levofloxacin/Dextrose 500 mg/ (Premix) 100 mls @ 100 mls/hr IV ONETIME ONE Stop: 01/01/18 06:06 Last Admin: 01/01/18 05:24 Dose: 100 mls/hr Ceftriaxone Sodium/Dextrose 1 (gm/ Premix) 50 mls @ 100 mls/hr IV Q24H [facility] Last Admin: 01/01/18 07:25 Dose: Not Given Ceftriaxone Sodium/Dextrose 1 (gm/ Premix) 50 mls @ 100 mls/hr IV Q24H [facility]ENN[facility] Pantoprazole Sodium 80 mg/ (Sodium Chloride) 100 mls @ 10 mls/hr IV Q10H [facility] Iopamidol (Isovue Multipack-370 (76%)) 60 ml IVPUSH ONETIME STA Stop: 01/01/18 14:13 Last Admin: 01/01/18 14:12 Dose: 60 ml Pantoprazole Sodium (Protonix Iv) 80 mg IVPUSH .BOLUS ONE Stop: 01/01/18 04:59 Last Admin: 01/01/18 05:17 Dose: 80 mg Pantoprazole Sodium (Protonix Iv) 80 mg IV Q8HR JENNIFER - Exam General: Reports: Alert, Oriented, Cooperative, No Acute Distress Neck: Reports: Supple Lungs: Reports: Clear to Auscultation, Normal Respiratory Effort Cardiovascular: Reports: Regular Rate, Regular Rhythm GI/Abdominal Exam: Normal Bowel Sounds, Soft, Non-Tender, No Organomegaly, No Distention, No Abnormal Bruit, No Mass, Pelvis Stable Extremities: Normal Inspection, Normal Range of Motion, Non-Tender, No Pedal Edema, Normal Capillary Refill, Other (contractures at baseline) Skin: Reports: Warm, Dry, Intact Neurological: Reports: No New Focal Deficit Psy/Mental Status: Reports: Alert, Normal Affect, Normal Mood *Q Meaningful Use (DIS) - VTE *Q VTE Pharmacological Contraindications *Q: Risk of Bleeding
[2018-01-03] MEDS: Polyethylene Glycol 3350 Powder 17 GM Packet PO SCH (11:11)
== END 2018-01-03 12:30 | disposition home or self-care (01) | DRG 378 ==
LOC: MW.ED 04:03 → MW.MS 05:52
PROVIDERS: ADMIT Family Medicine; ATTEND Family Medicine
DX: K92.2 Gastrointestinal hemorrhage, unspecified (principal); D64.89 Other specified anemias; N39.0 Urinary tract infection, site not specified; D64.9 Anemia, unspecified; B96.20 Unspecified Escherichia coli [E. coli] as the cause of diseases classified elsewhere; R79.89 Other specified abnormal findings of blood chemistry; K59.00 Constipation, unspecified; G80.9 Cerebral palsy, unspecified; K21.9 Gastro-esophageal reflux disease without esophagitis; K44.9 Diaphragmatic hernia without obstruction or gangrene; N28.9 Disorder of kidney and ureter, unspecified; Z79.899 Other long term (current) drug therapy
CPT/HCPCS: 36415; 71045; 74018; 80053; 81001; 82150; 83605; 83690; 83735; 84443; 85025; 86677; 86850; 86900; 86901; 86920 ×2; 86921 ×2; 86922 ×2; 87040 ×2; 87086; 87088; 87186; 96361; 96365; 96376; 99285; C9113 ×2; J1956; J7030; J7040; 36430; 74178; 74178-26; 80048; 82272; 85014; 85018; 93005; A9270-GY; J0696; J7050; P9016; Q9967